=== PATIENT | female | born 2000 | race Caucasian/White ===

== ENCOUNTER 2024-07-02 03:11 | Outpatient (CLI) | payer OTHER, SELFPAY ==
[2024-07-02 12:32] LABS: Abs Immature Grans 0.04 10^3/uL (0.0-0.06); Absolute Basophil Count 0.02 10^3/uL (0.0-0.2); Absolute Eosinophil Count 0.28 10^3/uL (0.0-0.7); Absolute Lymphocyte Count 2.23 10^3/uL (1.2-3.4); Absolute Monocyte Count 0.59 10^3/uL (0.1-0.8); Absolute Neutrophil Count 6.83 10^3/uL (1.2-6.7); Basophils % 0.2 %; Eosinophils % 2.8 %; HCT 38.2 % (36.0-46.0); HGB 12.2 g/dL (11.2-15.7); Immature Grans % 0.4 %; Lymphocytes % 22.3 %; MCHC 31.9 % (32.0-36.0); MCV 88 fL (80-95); MPV 9.9 fL (8.0-11.0); Monocytes % 5.9 %; Neutrophils % 68.4 %; Platelet Count 281 10^3/uL (130-400); RBC 4.36 10^6/uL (3.93-5.22); RDW 11.7 % (11.7-14.6); RDW-SD 37.9 fL; WBC 9.99 10^3/uL (4.4-10.8)
[2024-07-02 13:23] LABS: ALT 23 U/L (14-59); AST 13 U/L (15-37); Alkaline Phosphatase 72 U/L (46-116); Anion Gap 8.7 mmol/L (3-11); BUN 7 mg/dL (7-18); Bilirubin, Total 0.2 mg/dL (0.2-1.0); CO2 25.3 mmol/L (21.0-32.0); CREATININE 0.6 mg/dL (0.55-1.02); Calcium 9.6 mg/dL (8.5-10.1); Chloride 102 mmol/L (98-107); Estimated GFR 129.27 (mL/min/1.73m2); Glucose 81 mg/dL (74-106); Potassium 3.9 mmol/L (3.5-5.1); Sodium 136 mmol/L (136-145); TSH (W/Ref FT4) 1.81 uIU/mL (0.36-3.74); Total Protein 7.9 g/dL (6.4-8.2)
[2024-07-03 09:14] LABS: Hepatitis B Surface Ag Negative (Negative)
[2024-07-03 09:37] LABS: Rubella IgG Ab (UVM) Positive (See Note); Varicella IgG Antibody Positive (See Note)
[2024-07-03 09:40] LABS: Hepatitis C Ab w Rflx HCV PCR Negative (Negative)
[2024-07-03 10:19] LABS: HIV-1/2 Ag & Ab Screen Negative (Negative)
[2024-07-03 12:32] LABS: ANA Interpretation Negative (Negative)
[2024-07-04 17:36] LABS: Syphilis IgG w/Reflex Nonreactive (Nonreactive)
== END 2024-07-02 03:12 | disposition home or self-care (01) ==
PROVIDERS: PCP Family Medicine; Visit Provider Advanced Practice Midwife
DX: Z34.91 Encounter for supervision of normal pregnancy, unspecified, first trimester (principal)
CPT/HCPCS: 36415; 80053; 86787; 86803; 86850; 86900; 86901; 87340; 87389; 83036; 84443; 85025; 86038; 86762; 86780

== ENCOUNTER 2024-07-02 11:39 | Outpatient (REF) | payer OTHER, SELFPAY ==
--- NOTE | 2024-07-02 11:00 | PAPFT_PTH ---
PATIENT: Kaitlin Marsh LOC: [facility] U#:[id number] AGE/SX: 24/F ROOM: RE07/02/[address]: Yasmin Stevens CNM : 2000 BED: DIS: 07/02/2024 SPEC #: [id number] RECD: 07/02/24 13:23 STATUS: VIKAS REQ #: [id number] ANGEL LUIS: 07/02/24 11:[address]: Yasmin Stevens DEPT: [facility] Cytology RECD BY: Karen Vera ENTERED: 07/02/24 13:23 SP TYPE: PAPFT OTHR DR: Bartolo Arnold Tissues: 1 - CX/ENDOCX FOR PAP SMEARS Procedures: PAP THIN PREP/UVM Screening Comments: [id number] (CHLAMYDIA/GC)
[2024-07-02 13:46] LABS: COMMENT (LAB VIEW ONLY) 236.97 mg/dL; Prot/Crea Ur Ratio 0.09
[2024-07-02 13:56] LABS: *AMPHETAMINES SCREEN URINE Negative (Negative); *BARBITURATES SCREEN URINE Negative (Negative); *BENZODIAZEPINES SCREEN URINE Negative (Negative); Cannabinoids THC Negative (Negative); Cocaine Screen,Urine Negative (Negative); METHADONE URINE SCREEN Negative (Negative); OPIATES URINE SCREEN Negative (Negative)
[2024-07-02 13:58] LABS: Tricyclic Antidepressants Negative (Negative)
[2024-07-03 11:51] LABS: Fentanyl Scr w/Rfx Confirm Negative ng/mL (<1)
[2024-07-03 12:35] LABS: Chlamydia Result Negative (Negative); GC Result Negative (Negative)
[2024-07-06 10:25] LABS: Buprenorphine Negative ng/mL (Cutoff: 5.0); Norbuprenorphine Negative ng/mL (Cutoff: 2.5)
== END 2024-07-02 11:40 | disposition home or self-care (01) ==
LOC: LBN 11:39
PROVIDERS: PCP Family Medicine; Visit Provider Advanced Practice Midwife
DX: Z12.4 Encounter for screening for malignant neoplasm of cervix
CPT/HCPCS: 80307; 80348; 87491; 87591; 88142; 82565; 84156; 87086

== ENCOUNTER 2024-07-11 21:36 | Emergency (ER) | payer OTHER, SELFPAY ==
[2024-07-11 21:38] VITALS: BP 140/87; PULSE 85; RESP 20; TEMP 36.8; O2SAT 100
--- NOTE | 2024-07-11 22:17 | ED.GENADUL_ITS ---
Discharge Plan Disposition Patient Disposition: Home Condition: Good Discharge Details Clinical Impression: Miscarriage, threatened, early , Abnormal vaginal bleeding Primary Care Provider: Bartolo Arnold ED Provider: Mary Grace Chávez Home Meds and New Rx's Prescriptions: Continued PNV #[id number] 30 mg iron-10 mg iron-1 mg capsule PO epinephrine [EpiPen 2-Candido] 0.3 mg/0.3 mL auto-injector 0.3 mg IM ONCE PRN Rx Instructions: as a single dose; may repeat once acetaminophen 500 mg tablet 500 mg PO Q6H PRN omeprazole 20 mg capsule,delayed release(DR/EC) 20 mg PO DAILY PRN aspirin 81 mg tablet,delayed release (DR/EC) 162 mg PO DAILY Qty: 90 3RF Discharge Instructions Instructions: Bleeding in Early ED Additional Instructions: Call your fire investigation lieutenant in the [facility] to schedule an appointment to followup on your visit today. Return to the emergency department if you develop new or worsening symptoms, including abdominal pain, fever, or if you soak through a pad in less than an hour. Discharge Data Discharge Date/Time-TO BE ENTERED AT DEPARTURE: 07/11/24 22:41 HPI General Mode of arrival: ambulatory . Date/Time Provider Initiated Documentation: 07/11/24 21:46 . Limitations to Documentation: no limitations . Information obtained by: patient and old records reviewed ( visit 07/02/24, US images may 2024) . HPI Narrative: 24yo 12w3d gestation by US with confirmed IUP, blood type A+, hx HTN, presenting for spotting. This evening about 1 hour ago after urinating noted a scant amount of blood on the toilet paper. Had to wipe 2-3 times before it resolved. No blood in the toilet. No further bleeding or spotting since then, not currently wearing a pad. Has not had bleeding otherwise this . No burning with urination or blood in her urine. No abdominal pain. No other vaginal discharge. Vaginal intercourse earlier today. Not yet feeling the baby move. Otherwise in her usual state of health. Related Data Home Medications ?Medication ?Instructions ?Recorded ?Confirmed epinephrine 0.3 mg/0.3 mL 0.3 mg IM ONCE PRN 07/22/23 07/11/24 injection, auto-injector (EpiPen 2-Candido) acetaminophen 500 mg tablet 500 mg PO Q6H PRN 08/30/23 07/11/24 vitamin#30 30 mg iron-10 cap PO 06/18/24 07/02/24 mg iron-folic acid 1 mg-omg3 capsule aspirin 81 mg tablet,delayed 162 mg (2 x 81 mg) PO DAILY #90 07/02/24 07/11/24 release tabs omeprazole 20 mg capsule,delayed 20 mg PO DAILY PRN 07/02/24 07/11/24 release Previous Rx's ?Medication ?Instructions ?Recorded aspirin 81 mg tablet,delayed 162 mg (2 x 81 mg) PO DAILY #90 07/02/24 release tabs Allergies Allergy/AdvReac Type Severity Reaction Status Date / Time marijuana (cannabis) Allergy Anaphylaxis Verified 07/11/24 21:40 General Stated 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 Head: Normocephalic, atraumatic Neck: Trachea midline, ?Neck supple. Cardiac: ?No cyanosis. Well perfused. Resp: No respiratory distress.Speaking in full sentences. Abd: ?Soft, non-distended, nontender : ?No suprapubic or adenxal tenderness. Normal external genitalia. No evident vaginal bleeding on external exam. Extremities: ?No deformities.? No peripheral edema. Neurologic: GCS 15. ? Moves all extremities freely against gravitic Course Vital Signs Vital signs: Vital Signs Temperature 36.8 C 07/11/24 21:38 Pulse 85 07/11/24 21:38 Respiratory Rate 07/11/24 21:38 Blood Pressure 140/87 07/11/24 21:38 Pulse Oximetry 100 07/11/24 21:38 Temperature 36.8 C 07/11/24 21:38 Pulse 85 07/11/24 21:38 Respiratory Rate 20 07/11/24 21:38 Blood Pressure 140/87 07/11/24 21:38 Blood Pressure Position Sitting 07/11/24 21:38 Pulse Oximetry 100 07/11/24 21:38 Oxygen Delivery Method Room Air 07/11/24 21:38 Oxygen Flow Rate 0 07/11/24 21:38 Medical Decision Making 24yo 12w3d gestation by US with confirmed IUP, blood type A+, hx HTN, presenting for spotting. Noted a scant amount of blood while wiping after urinating; no additional bleeding and is not wearing a pad. No abdominal pain. No dysuria. Elevated BP on arrival 140/87 (OB aware of and following her for her pregestational hypertension), vital signs otherwise reassuring. No abdominal tenderness no no active bleeding on external genital exam. FHT 170's. With confirmed IUP and not on fertility treatment and no pain, unlikely ectopic; would not transfer emergent for ultrasound. Not suggestive of UTI. No indication for rhogam. Likely threatened miscarriage; considered speculum exam to assess cervcial os however would not warp changer at this time, regardless would discharge home to followup closely with fire investigation lieutenant. Patient would like to go home and followup wtih OB. Advised to call in the morning to schedule a followup appointment for her bleeding and BP. Discharged home; discharged instructions and return precautions were reviewed with patient who verbalized understanding. All questions were answered and she is in full agreement with the plan. Quality:SDOH Health Related Social Needs: No Data to Display PFSH All Active Problems (Updated 07/11/24 @ 22:31 by Mary Grace Chávez MD) Abnormal vaginal bleeding (Acute) Miscarriage, threatened, early (Acute) Family history of cardiac arrhythmia (Acute) pt's mother had an [place], implanted defibrillator in her 40's Family history of aortic valve disorder (Acute) pt's mother had valve replacement in her 40's Chronic eczema (Acute) Family history of Zizc-Pbaol-Kzwqqfe disease (Acute) Baby's father (pt's fiance) Body mass index (BMI) of 40.1 to 44.9 in adult (Acute) Chronic constipation (Acute) (Acute) Stage 1 hypertension (Acute) Medical History (Updated 07/11/24 @ 22:31 by Mary Grace Chávez MD) Family history of diabetes mellitus in grandmother Family history of diabetes mellitus in grandfather Foreign body in right ear Removed ENT, 08/30/23 Tobacco user Obesity Menorrhagia Generalized anxiety disorder Disorder of speech or language development Allergic rhinitis due to tree pollen Ganglion, unspecified site right wrist Decreased hearing Social History (Updated 07/22/23 @ 15:15 by Marie Aly RN) Smoking/Tobacco Use Status: Former Tobacco Use tobacco type: e-cigarettes Smoking risk assessment performed?: Yes History History 1 Para 0 Hx # Term Pregnancies 0 Multiple births 0 Hx # Pregnancies 0 Ectopic pregnancies 0 AB induced 0 Hx Number of Living Children 0 AB spontaneous 0
== END 2024-07-11 22:41 | disposition home or self-care (01) ==
LOC: ER 23:02
PROVIDERS: Emergency Provider Student in an Organized Health Care Education/Training Program; PCP Family Medicine
DX: O20.0 Threatened abortion (principal); N93.9 Abnormal uterine and vaginal bleeding, unspecified
CPT/HCPCS: 99283; 99282

== ENCOUNTER 2024-08-23 03:35 | Outpatient (CLI) | payer OTHER, MEDICAID, SELFPAY ==
[2024-08-28 15:28] LABS: AFP 36.1 ng/mL; Calculated age at EDD 24 years; Cigarette smoking status non-Smoker; GA used in risk estimate Scan estimate; IVF Pregnancy No; Initial or repeat testing Initial testing; Insulin dependent diabetes No; Maternal Weight 235 lbs; Number of Fetuses 1; Physician Phone Number 802-748-7300; Prev Pregnancy w/NTD No; RECOMMENDED FOLLOW UP None.; Results Summary Normal risk
== END 2024-08-23 03:36 | disposition home or self-care (01) ==
LOC: LBO 03:36
PROVIDERS: Advanced Practice Midwife; PCP Family Medicine; Visit Provider Advanced Practice Midwife
DX: Z34.91 Encounter for supervision of normal pregnancy, unspecified, first trimester (principal)
CPT/HCPCS: 36415; 82105

== ENCOUNTER 2024-09-11 13:21 | Outpatient (CLI) | payer OTHER, MEDICAID, SELFPAY ==
--- NOTE | 2024-09-11 13:15 | RT.EKG_ITS ---
APPROVED REPORT Exam: Resting ECG Reason for Exam: and family historuy of arrhythmia Patient Location: O HR:85 bpm ECG Measurements Heart Rate 85 AXIS NC 131 P 46 QRSd 77 QRS 12 QT 351 T 2 QTc 418 Conclusion Sinus rhythm...normal P axis, V-rate 50- 99 Normal Electrocardiogram
== END 2024-09-11 13:22 | disposition home or self-care (01) ==
PROVIDERS: PCP Family Medicine; Visit Provider Advanced Practice Midwife
DX: Z82.49 Family history of ischemic heart disease and other diseases of the circulatory system (principal)
CPT/HCPCS: 93005; 93010

== ENCOUNTER 2024-09-19 11:05 | Outpatient (CLI) | payer OTHER, MEDICAID, SELFPAY ==
[2024-09-19 13:59] VITALS: BP 110/77; PULSE 71
[2024-09-19 14:02] VITALS: BP 110/77; PULSE 71
--- NOTE | 2024-09-19 17:56 | W.OBNST ---
Date of service: 09/19/24 Time of Service: 15:00 NST Evaluation Reason for NST Reasons for Nonstress Test: DECREASED MOVEMENT Gestational Age Gestational Age in Weeks and Days: 22 Weeks and 3Days Test and Monitor Explained Test/Monitor Explained: Test Explained, Monitor Explained and Patient Verbalized Understanding Vital Signs Blood Pressure: 110/77 Pulse: 71 NST Information Date on Monitor: 09/19/24 Time on Monitor: 13:45 Date off Monitor: 09/19/24 Time off Monitor: 14:35 Total Time on Monitor: 50 NST Interventions: None Contraction Frequency: none NST Evaluation Patient States Movement: Present FHR Baseline: 140 Variability: Moderate 6-25 bpm Note Ultrasound Done: N/A. NST Note Note: Pt's urine negative except for sp. gr >1.030, trace ketones. Pt encouraged to hydrate more, no vomiitng since yesterday. NST Reviewed and Verified by: Yasmin Stevens
[2024-09-19 17:57] VITALS: BP 110/77; PULSE 71
[2024-09-20 15:58] VITALS: BP 128/70; PULSE 71
== END 2024-09-19 14:40 | disposition home health service (06) ==
LOC: BCD 11:22 → OBS 13:51
PROVIDERS: PCP Family Medicine; Visit Provider Advanced Practice Midwife
DX: O36.8121 Decreased fetal movements, second trimester, fetus 1 (principal); Z3A.22 22 weeks gestation of pregnancy
CPT/HCPCS: 59025

== ENCOUNTER 2024-10-19 02:20 | Outpatient (CLI) | payer OTHER, MEDICAID, SELFPAY ==
[2024-10-19 13:04] LABS: HCT 34.9 % (36.0-46.0); HGB 11.7 g/dL (11.2-15.7); MCH 29.1 pg (27.0-33.0); MCHC 33.5 % (32.0-36.0); MCV 87 fL (80-95); MPV 10.7 fL (8.0-11.0); Platelet Count 242 10^3/uL (130-400); RBC 4.02 10^6/uL (3.93-5.22); RDW 13.5 % (11.7-14.6); RDW-SD 42.5 fL; WBC 13.21 10^3/uL (4.4-10.8)
[2024-10-19 13:09] LABS: Glucose,1 Hr (Glucola) 127 mg/dL (80-140)
[2024-10-19 13:53] LABS: Cannabinoids THC Negative (Negative); METHADONE URINE SCREEN Negative (Negative)
[2024-10-21 10:47] LABS: Fentanyl Scr w/Rfx Confirm Negative ng/mL (<1)
== END 2024-10-19 02:21 | disposition home or self-care (01) ==
PROVIDERS: PCP Family Medicine; Visit Provider Advanced Practice Midwife
DX: Z34.92 Encounter for supervision of normal pregnancy, unspecified, second trimester (principal); F12.90 Cannabis use, unspecified, uncomplicated
CPT/HCPCS: 36415; 80307; 80348; 82950; 85027

== ENCOUNTER 2024-10-30 09:41 | Outpatient (CLI) | payer OTHER, MEDICAID, SELFPAY ==
[2024-10-30 11:51] VITALS: BP 125/81; PULSE 81
[2024-10-30 12:01] VITALS: BP 128/87; PULSE 80
[2024-10-30 12:11] VITALS: BP 124/86; PULSE 75
[2024-10-30 12:21] VITALS: BP 133/93; PULSE 85
[2024-10-30 12:48] VITALS: BP 124/86; PULSE 75
--- NOTE | 2024-10-31 08:16 | W.OBNST ---
Date of service: 10/30/24 Time of Service: 13:00 NST Evaluation Reason for NST Reasons for Nonstress Test: OTHER, SEE COMMENT Reason for NST Other: general pain, suprapubic pain, left lateral pain Gestational Age Gestational Age in Weeks and Days: 30 Weeks and 0Days Test and Monitor Explained Test/Monitor Explained: Test Explained, Monitor Explained and Patient Verbalized Understanding Vital Signs Blood Pressure: 124/86 Pulse: 75 Urine Results Urine Protein: Negative Urine Ketones: Negative Urine Glucose: Negative Urine Blood: Negative NST Information Date on Monitor: 10/30/24 Time on Monitor: 11:15 Date off Monitor: 10/30/24 Time off Monitor: 12:25 Total Time on Monitor: 70 NST Interventions: PO Hydration Contraction Frequency: no UCs, occasional irritabilty, urine dark with SG 1.015 NST Evaluation Patient States Movement: Present FHR Baseline: 140 Variability: Moderate 6-25 bpm Accelerations: 10x10 Decelerations: None NST Results: Reactive Note Ultrasound Done: N/A. NST Note Note: Cvx is closed, given abdominal binder with instructions NST Reviewed and Verified by: Yasmin Stevens
[2024-10-31 08:17] VITALS: BP 124/86; PULSE 75
== END 2024-10-30 12:40 ==
LOC: BCD 09:41 → OBS 11:13
PROVIDERS: PCP Family Medicine; Visit Provider Advanced Practice Midwife
DX: Z3A.30 30 weeks gestation of pregnancy (principal); O99.891 Other specified diseases and conditions complicating pregnancy; R10.32 Left lower quadrant pain; R10.31 Right lower quadrant pain
CPT/HCPCS: 59025

== ENCOUNTER 2024-11-13 02:12 | Outpatient (CLI) | payer OTHER, MEDICAID, SELFPAY ==
--- NOTE | 2024-11-13 07:00 | DI.US_ITS ---
Exam(s) US OB RODRIGO WEIGHT EXAM: US OB RODRIGO WEIGHT CLINICAL HISTORY: interval growth,z34.90. TECHNIQUE: Transabdominal obstetrical ultrasound performed. COMPARISON: No exams were available for comparison FINDINGS: Number of fetuses: 1 position: BREECH Placental location: There is a grade 1 posterior placenta. No evidence of previa. BIOMETRIC DATA: BPD: 8.09cm, 32weeks 3days HC: 29.5cm, 32weeks 4days AC: 27.56cm, 31weeks 4days FL: 5.8cm, 30weeks 2days EFW: 1,758.48g, 4lb, 21.7% Composite Age: 31weeks 5days ASCENCION: 01/10/2025 Heart Rate: 133bpm Amniotic fluid index: 16.87cm. The largest pocket measures 4.7 cm. IMPRESSION: 1. Single live intrauterine gestation as above. 2. Estimated weight is 1758gms. This is the 22nd percentile. 3. Amniotic fluid index is 16.9 cm. The largest pocket is 4.7 cm. DATA REPOSITORY:
== END 2024-11-13 02:32 ==
LOC: DI 02:12
PROVIDERS: PCP Family Medicine; Visit Provider Advanced Practice Midwife
DX: Z68.41 Body mass index [BMI] 40.0-44.9, adult (principal); Z34.93 Encounter for supervision of normal pregnancy, unspecified, third trimester; Z3A.32 32 weeks gestation of pregnancy
CPT/HCPCS: 76816

== ENCOUNTER 2024-11-22 07:28 | Outpatient (CLI) | payer OTHER, MEDICAID, SELFPAY ==
[2024-11-22 08:13] VITALS: BP 108/70; PULSE 92; TEMP 36.5
[2024-11-22 08:34] VITALS: BP 108/70; PULSE 92
--- NOTE | 2024-11-22 09:30 | DI.US_ITS ---
Exam(s) US OB RODRIGO, WEIGHT BIO PROF. EXAM: US OB RODRIGO, WEIGHT BIO PROF. CLINICAL HISTORY: variables. TECHNIQUE: Transabdominal obstetrical ultrasound performed. COMPARISON: US US OB RODRIGO WEIGHT from 11/13/2024 FINDINGS:: Number of fetuses: 1 position: CEPHALIC Placental location: POSTERIOR No evidence of previa. BIOMETRIC DATA: BPD: 8.21 cm, 33+ 0 weeks HC: 30.34 cm, 33+5 weeks AC: 28.47 cm, 32+3 weeks FL: 6.39 cm, 33+ 0 weeks EFW: 2056.46 g, 27.7 %, appropriate interval growth from the previous exam Composite Age: 33+ 0 weeks ASCENCION: 10 January 2025 Heart Rate: 134 bpm Amniotic fluid index: 15.88 cm. Visually, amount of fluid is within normal limits. Biophysical profile: RODRIGO: 2/2 Respiration: 2/2 Body flexion/extension: 2/2 Extremities flexion/extension: 2/2 Total score: 8/8 IMPRESSION: size and weight are within the expected range. Normal biophysical profile. DATA REPOSITORY:
--- NOTE | 2024-11-22 10:16 | W.OBNST ---
Date of service: 11/22/24 Time of Service: 10:16 NST Evaluation Reason for NST Reasons for Nonstress Test: OTHER, SEE COMMENT Reason for NST Other: abdominal pain Gestational Age Gestational Age in Weeks and Days: 33 Weeks and 2Days Test and Monitor Explained Test/Monitor Explained: Test Explained, Monitor Explained and Patient Verbalized Understanding Vital Signs Blood Pressure: 108/70 Pulse: 92 Temperature: 97.7 F NST Information Date on Monitor: 11/22/24 Time on Monitor: 08:18 Date off Monitor: 11/22/24 Time off Monitor: Total Time on Monitor: 67 NST Interventions: PO Hydration NST Evaluation Patient States Movement: Present FHR Baseline: 135 Variability: Moderate 6-25 bpm Accelerations: 15x15 and 10x10 Decelerations: Variable NST Results: Reactive Note Ultrasound Done: N/A. NST Note Note: Patient seen for right lower quadrant discomfort. Her cervix is closed thick and long. She had a category 1 strip with an occasional variable. Biophysical profile was 8 out of 8 per diagnostic imaging. Ultrasound for growth, RODRIGO, and position were all performed. She will follow-up as scheduled. NST Reviewed and Verified by: Jody Dickerson
[2024-11-22 10:17] VITALS: BP 108/70; PULSE 92; TEMP 36.5
[2024-11-22 12:13] VITALS: BP 108/70; PULSE 92; TEMP 36.5
--- NOTE | 2024-11-22 12:13 | W.OBNST ---
Date of service: 11/22/24 Time of Service: 12:13 NST Evaluation Reason for NST Reasons for Nonstress Test: OTHER, SEE COMMENT Reason for NST Other: abdominal pain Gestational Age Gestational Age in Weeks and Days: 33 Weeks and 2Days Test and Monitor Explained Test/Monitor Explained: Test Explained, Monitor Explained and Patient Verbalized Understanding Vital Signs Blood Pressure: 108/70 Pulse: 92 Temperature: 97.7 F NST Information Date on Monitor: 11/22/24 Time on Monitor: 08:18 Date off Monitor: 11/22/24 Time off Monitor: Total Time on Monitor: 67 NST Interventions: PO Hydration NST Evaluation Patient States Movement: Present FHR Baseline: 135 Variability: Moderate 6-25 bpm Accelerations: 15x15 and 10x10 Decelerations: Variable NST Results: Reactive Note Ultrasound Done: N/A. NST Note Note: Category 1, reactive NST. NST Reviewed and Verified by: Jody Dickerson
== END 2024-11-22 10:08 ==
LOC: BCD 07:28 → OBS 08:10
PROVIDERS: PCP Family Medicine; Visit Provider Advanced Practice Midwife
DX: R10.30 Lower abdominal pain, unspecified (principal); Z3A.33 33 weeks gestation of pregnancy; O99.891 Other specified diseases and conditions complicating pregnancy
CPT/HCPCS: 76816; 59025; 76819

== ENCOUNTER 2024-12-05 07:31 | Outpatient (CLI) | payer OTHER, MEDICAID, SELFPAY ==
[2024-12-05 09:04] VITALS: BP 121/67; PULSE 83
[2024-12-05 09:08] VITALS: BP 121/67; PULSE 83
[2024-12-05 10:55] VITALS: BP 121/67; PULSE 83
--- NOTE | 2024-12-05 10:55 | W.OBNST ---
Date of service: 12/05/24 Time of Service: 10:55 NST Evaluation Reason for NST Reasons for Nonstress Test: OTHER, SEE COMMENT Reason for NST Other: High BMI Gestational Age Gestational Age in Weeks and Days: 35 Weeks and 1Days Test and Monitor Explained Test/Monitor Explained: Test Explained, Monitor Explained and Patient Verbalized Understanding Vital Signs Blood Pressure: 121/67 Pulse: 83 NST Information Date on Monitor: 12/05/24 Time on Monitor: 08:52 Date off Monitor: 12/05/24 Time off Monitor: 10:00 Total Time on Monitor: 68 NST Interventions: PO Hydration and Other NST Evaluation Patient States Movement: Present FHR Baseline: 135 Variability: Moderate 6-25 bpm Accelerations: 15x15 Decelerations: None NST Results: Reactive Note Ultrasound Done: N/A. NST Note Note: return next week for weekly NST d/t BMI NST Reviewed and Verified by: Yasmin Stevens
== END 2024-12-05 10:26 | disposition other institution (70) ==
LOC: BCD 07:32 → OBS 08:50
PROVIDERS: PCP Family Medicine; Visit Provider Advanced Practice Midwife
DX: Z3A.35 35 weeks gestation of pregnancy (principal); O13.3 Gestational [pregnancy-induced] hypertension without significant proteinuria, third trimester
CPT/HCPCS: 59025

== ENCOUNTER 2024-12-11 00:51 | Outpatient (CLI) | payer OTHER, MEDICAID, SELFPAY ==
--- NOTE | 2024-12-11 05:30 | DI.US_ITS ---
Exam(s) US OB RODRIGO WEIGHT EXAM: US OB RODRIGO WEIGHT CLINICAL HISTORY: RODRIGO and growth for HTN during ,i10,z34.90. TECHNIQUE: Transabdominal obstetrical ultrasound performed. COMPARISON: US POCUS EXAM from 06/04/2024 US US OB RODRIGO WEIGHT from 11/13/2024 US US OB RODRIGO, WEIGHT BIO PROF. from 11/22/2024 FINDINGS:: Number of fetuses: 1 position: CEPHALIC Placental location: FUNDAL No evidence of previa. BIOMETRIC DATA: BPD: 8.91cm, 36weeks HC: 32.59cm, 37weeks AC: 31.97cm, 35weeks 6days FL: 6.73cm, 34weeks 4days EFW: 2,741.41g, 6lb 1.6oz, 42% Composite Age: 35weeks 6days ASCENCION: 01/09/2025 Heart Rate: 138bpm Amniotic fluid index: 11.87cm. Visually, amount of fluid is within normal limits. IMPRESSION: size and weight are within the expected range. DATA REPOSITORY:
== END 2024-12-11 01:11 ==
LOC: DI 00:51
PROVIDERS: PCP Family Medicine; Visit Provider Advanced Practice Midwife
DX: Z34.93 Encounter for supervision of normal pregnancy, unspecified, third trimester (principal); Z68.41 Body mass index [BMI] 40.0-44.9, adult; I10 Essential (primary) hypertension; Z3A.36 36 weeks gestation of pregnancy
CPT/HCPCS: 76816

== ENCOUNTER 2024-12-11 07:25 | Outpatient (CLI) | payer OTHER, MEDICAID, SELFPAY ==
[2024-12-11 10:10] VITALS: BP 126/86; PULSE 87; TEMP 36.6
[2024-12-11 11:01] VITALS: BP 114/69; PULSE 85
--- NOTE | 2024-12-11 15:49 | W.OBNST ---
Date of service: 12/11/24 Time of Service: 15:49 NST Evaluation Reason for NST Reasons for Nonstress Test: OTHER, SEE COMMENT Reason for NST Other: Elevated BMI Gestational Age Gestational Age in Weeks and Days: 36 Weeks and 0Days Test and Monitor Explained Test/Monitor Explained: Test Explained, Monitor Explained and Patient Verbalized Understanding Vital Signs Blood Pressure: 126/86 Pulse: 87 Temperature: 97.9 F Urine Results Urine Protein: Negative Urine Ketones: Negative Urine Glucose: Negative Urine Blood: Negative NST Information Date on Monitor: 12/11/24 Time on Monitor: 10:00 Date off Monitor: 12/11/24 Time off Monitor: 11:10 Total Time on Monitor: 70 NST Interventions: None Contraction Frequency: None NST Evaluation Patient States Movement: Present FHR Baseline: 135 Variability: Moderate 6-25 bpm Accelerations: 15x15 Decelerations: None NST Results: Reactive Note Ultrasound Done: N/A. NST Note Note: Kaitlin is here for weekly NST. Wishes discussed and Kaitlin is considering writing a plan. BP rechecked and 114/69. RTO 1 week. BS collected. NST Reviewed and Verified by: Autumn Segura
[2024-12-11 15:50] VITALS: BP 126/86; PULSE 87; TEMP 36.6
== END 2024-12-11 11:22 ==
LOC: BCD 07:31 → OBS 10:03
PROVIDERS: PCP Family Medicine; Visit Provider Advanced Practice Midwife
DX: O99.891 Other specified diseases and conditions complicating pregnancy (principal); R03.0 Elevated blood-pressure reading, without diagnosis of hypertension; Z3A.36 36 weeks gestation of pregnancy
CPT/HCPCS: 59025; 87081

== ENCOUNTER 2024-12-18 08:06 | Outpatient (CLI) | payer OTHER, MEDICAID, SELFPAY ==
[2024-12-18 09:07] VITALS: BP 132/75; PULSE 95; TEMP 36.7
[2024-12-18 09:26] LABS: HCT 34.3 % (36.0-46.0); HGB 11.4 g/dL (11.2-15.7); MCH 28.8 pg (27.0-33.0); MCHC 33.2 % (32.0-36.0); MCV 87 fL (80-95); MPV 10.7 fL (8.0-11.0); Platelet Count 235 10^3/uL (130-400); RBC 3.96 10^6/uL (3.93-5.22); RDW 13.2 % (11.7-14.6); RDW-SD 41.7 fL; WBC 12.12 10^3/uL (4.4-10.8)
[2024-12-18 16:52] VITALS: BP 132/75; PULSE 95; TEMP 36.7
--- NOTE | 2024-12-18 16:52 | W.OBNST ---
Date of service: 12/18/24 Time of Service: 16:52 NST Evaluation Reason for NST Reasons for Nonstress Test: OTHER, SEE COMMENT Reason for NST Other: Elevated BMI Gestational Age Gestational Age in Weeks and Days: 37 Weeks and 0Days Test and Monitor Explained Test/Monitor Explained: Test Explained, Monitor Explained and Patient Verbalized Understanding Vital Signs Blood Pressure: 132/75 Pulse: 95 Temperature: 98.1 F Weight: 158 lb Urine Results Urine Protein: Negative Urine Ketones: Negative Urine Glucose: Negative Urine Blood: Negative NST Information Date on Monitor: 12/18/24 Time on Monitor: 08:34 Date off Monitor: 12/18/24 Time off Monitor: 09:05 Total Time on Monitor: 31 NST Interventions: Notify Provider Contraction Frequency: 0 NST Evaluation Patient States Movement: Present FHR Baseline: 140 Variability: Moderate 6-25 bpm Accelerations: 15x15 Decelerations: None NST Results: Reactive Note Ultrasound Done: N/A. NST Note Note: NST next week NST Reviewed and Verified by: Yasmin Stevens
== END 2024-12-18 09:17 ==
LOC: BCD 08:08 → OBS 08:43
PROVIDERS: PCP Family Medicine; Visit Provider Advanced Practice Midwife
DX: Z3A.37 37 weeks gestation of pregnancy (principal); O99.213 Obesity complicating pregnancy, third trimester
CPT/HCPCS: 36415; 85027; 59025

== ENCOUNTER 2024-12-25 07:13 | Outpatient (CLI) | payer OTHER, MEDICAID, SELFPAY ==
[2024-12-25 08:44] VITALS: BP 122/77; PULSE 0
[2024-12-25 08:45] VITALS: PULSE 80; O2SAT 97
[2024-12-25 08:53] VITALS: BP 122/77; PULSE 80; RESP 16; TEMP 36.6; O2SAT 97
[2024-12-25 12:16] VITALS: BP 122/77; PULSE 80; TEMP 36.6
--- NOTE | 2024-12-25 12:16 | W.OBNST ---
Date of service: 12/25/24 Time of Service: 10:00 NST Evaluation Reason for NST Reasons for Nonstress Test: CHRONIC HYPERTENSION and OTHER, SEE COMMENT Reason for NST Other: high BMI Gestational Age Gestational Age in Weeks and Days: 38 Weeks and 0Days Test and Monitor Explained Test/Monitor Explained: Test Explained, Monitor Explained and Patient Verbalized Understanding Vital Signs Blood Pressure: 122/77 Pulse: 80 Temperature: 97.9 F Weight: 250 lb Urine Results Urine Protein: Positive Urine Ketones: Negative Urine Glucose: Negative Urine Blood: Negative NST Information Date on Monitor: 12/25/24 Time on Monitor: 08:50 Date off Monitor: 12/25/24 Time off Monitor: 09:54 Total Time on Monitor: 64 NST Interventions: PO Hydration Contraction Frequency: 0 NST Evaluation Patient States Movement: Decreased FHR Baseline: 125 Variability: Moderate 6-25 bpm Accelerations: 15x15 Decelerations: None NST Results: Reactive Note Ultrasound Done: N/A. NST Note Note: Weekly NST Booked for IOL 01/04 NST Reviewed and Verified by: Yasmin Stevens
== END 2024-12-25 10:10 ==
LOC: BCD 07:13 → OBS 08:28
PROVIDERS: PCP Family Medicine; Visit Provider Advanced Practice Midwife
DX: Z3A.38 38 weeks gestation of pregnancy (principal); O13.3 Gestational [pregnancy-induced] hypertension without significant proteinuria, third trimester; O99.213 Obesity complicating pregnancy, third trimester
CPT/HCPCS: 59025

== ENCOUNTER 2024-12-29 22:00 | Inpatient (IN) | payer OTHER, MEDICAID, SELFPAY ==
[2024-12-29 21:29] VITALS: BP 139/93; PULSE 85; TEMP 36.7
--- NOTE | 2024-12-29 22:03 | HPE_ITS ---
Date of service: 12/29/24 Time of Service: 22:04 Assessment and Plan Assessment and plan (1) Premature rupture of membranes: Status: Acute (2) 38 weeks gestation of : Status: Acute Assessment and plan: The natural history of PROM was discussed, noting that it occurs in about 8-10% of term pregnancies. Labor beings in 24 hours in 70% of parturients with PROM, and in 90+% in 96 hours. We discussed active versus expectant management, particularly noting that active management decreases risk for chorioamnionitis by about half, decreased NICU admissions and reduces the time from ROM to delivery by about 10 hours, while not increasing risk for delivery. We also discussed that expectant management is not associated with increased mona sepsis, may improve maternal / child bonding, and is associated with fewer interventions in labor, though the risk for choriomnionitis increases significantly after 24 hours. We reviewed that antibiotic prophylaxis is generally not indicated and that 's may need to be observed for 48 hours after delivery when ROM has been >24 hours. She voiced understanding of her options and would like to proceed with active management. She has not recently had a cervical exam, and given that she is not feeling contractions (and those that are present are mild), it is reasonable to assume cervical ripening is needed, will initiate PO misoprostol and transition to Pitocin as indicated. A: IUP at 38w4d PROM Category I surveillance Newly elevated diastolic blood pressure in the setting of stage 1 HTN not currently requiring antihypertensives P: - Admit for labor and delivery - PO misoprostol - CBC, CMP, ABO/Rh with antibody screen. Not able to obtain a clean catch urine for PC ratio given the amount of amniotic fluid that is expelling, though if there is an indication for bladder catheterization in the future, will plan a PC ratio. - Will watch maternal blood pressures closely given risk factors for pre- eclampsia. Clinical exam at this time not suggestion of PEC. - prefences discussed - monitoring: continuous per IOL protocols - Will reassess in 4 hours or sooner PRN. - Plan to limit SVEs so as to reduce risk for infection OB-HPI Labor/Delivery History of Present Illness Reason for Visit: water broke Chief Complaint: Suspected Rupture of Membranes , Associated Signs and Symptoms of Suspected ROM: LOF. ASCENCION Calculator Estimated Delivery Date Method Current WG Current Estimate 01/08/25 LMP (Certain) 38w 4d Other Estimates 01/20/25 Ultrasound #1 36w 6d 01/11/25 Ultrasound #2 38w 1d Comments: Kaitlin is a 24 year old at 38w4d gestation by LMP who presents to L&D with complaints of copious watery discharge expelling from the vagina since ~ 2029. She describes the fluid as clear and pink-tinged. It has continued to leak since the initial gush. She is joined by her partner Matt, mother, father, aunt, sister and other extended family members. course as described below. Gestational weight gain has been 13 lbs. Recent growth sonogram on 12/11/24 showed a fetus in the 42% growth percentile. GBS status is negative plan: - Partner Matt and her mother will stay with her - Expecting a baby boy, who will be breastfed - Hoping to use hydrotherapy, and is also consider IV pain medications History of Present Expected Delivery Route/Plan - CNKalyn (likely MD matthews) FOB/fiance - Matt Gopi (first child) Will find out gender at level 2 scan: BB, plans to circ GBS negative IOL booked for 01/04 (d/t BMI) Specific Issues/Plan 1. Stage 1 HTN/family hx heart disease: Pt reports BPs were 130s/80s but d/t strong fam hx heart disease PCP put her on Amlodipine. She took for 6mo then stopped 5mo before . PCP had her restart, BP's have been nml and pt stopped again @ 5-6 wks. 1a. Tried labetalol but felt dizzy even on 50mg, discontinued Rx 2. Low dose ASA at 12 wks d/t fam hx, BMI, nulliparity, stage 1 HTN 3. BMI 42, hgbA1c 5.0. M recommends weekly NST starting @ 34-35 wks 4. Declines all genetic screening due to no insurance coverage for it. 5. [facility] [place] level 2 scan and M consult for fam hx and stage 1 HTN. See consult noted for recommendations: 5a. EKG=nml. Home BP monitoring, growth scan @ 32 wks: 22nd percentile, RODRIGO 17, breech 5b. US at 36- RODRIGO 11.87 cms. EFW 42%ile wks, IOL at 40-41 wks w/shared decision-making 6. Visible gum inflammation; saw dentist, treatment planned PP 7. 5P screen+, initial UDS negative, 28 wk UDS - neg 8. Anxiety and depression- no meds currently. 9. Low back pain and chronic arthritis - declines PT. Has not found supplements or tylenol to be effective. 10. costochondritis starting at 21 weeks -chronic rib pain after being dragged by a cow. Flexeril 5 mg at HS PRN. Declines PT, doesn't work for her. Not using Flexeril. 11. Hx chronic digestive issues, diarrhea & constipation, tried fiber and stool softener in past & has found ineffective. Review of Systems Narrative: Constitutional: no fever, no aches no chills OB: less FM this evening than usual, no CTXs, see above regarding LOF, no jm vaginal bleeding Neuro: no headache, no scotoma GI: no upper abominal pain PFSH All Active Problems (Updated 12/29/24 @ 22:18 by Dodie Ferris CNM) 38 weeks gestation of (Acute) Premature rupture of membranes (Acute) Marijuana use (Acute) Costochondritis (Acute) Family history of cardiac arrhythmia (Acute) pt's mother had an [place], implanted defibrillator in her 40's Family history of aortic valve disorder (Acute) pt's mother had valve replacement in her 40's Chronic eczema (Acute) Family history of Cfii-Nmecw-Nvaavmw disease (Acute) Baby's father (pt's fiance) Body mass index (BMI) of 40.1 to 44.9 in adult (Acute) Chronic constipation (Acute) (Acute) Stage 1 hypertension (Acute) Medical History Eczema Arthritis Rib injury Dragged by a cow. Pain x 1 year. Family history of diabetes mellitus in grandmother Family history of diabetes mellitus in grandfather Foreign body in right ear Removed ENT, 08/30/23 Tobacco user Obesity Menorrhagia Generalized anxiety disorder Disorder of speech or language development Allergic rhinitis due to tree pollen Ganglion, unspecified site right wrist surgery 2023 Decreased hearing Surgical History History of hand surgery Family History Mother Heart disease [place]. Chronic cardiac arrhythmia Depression Anxiety Asthma Maternal Grandfather Heart disease [place] age 47 Chronic cardiac arrhythmia Cancer lung cancer Arthritis Father Depression Anxiety Maternal Grandmother Diabetes Arthritis Paternal Grandfather Arthritis Diabetes Brother Asthma Hypertension Social History Smoking/Tobacco Use Status: Former Tobacco Use tobacco type: e-cigarettes Smoking risk assessment performed?: Yes History History 1 Para 0 Hx # Term Pregnancies 0 Multiple births 0 Hx # Pregnancies 0 Ectopic pregnancies 0 AB induced 0 Hx Number of Living Children 0 AB spontaneous 0 Meds Allergies and Home Medications Allergies Allergy/AdvReac Type Severity Reaction Status Date / Time marijuana (cannabis) Allergy Anaphylaxis Verified 11/28/24 14:54 Home Medications ?Medication ?Instructions ?Recorded ?Confirmed ?Type epinephrine 0.3 mg/0.3 mL 0.3 mg IM ONCE PRN 07/22/23 12/25/24 History injection, auto-injector (EpiPen 2-Candido) acetaminophen 500 mg tablet 500 mg PO Q6H PRN 08/30/23 12/25/24 History vitamins 30 30 mg iron-10 1 cap PO DAILY 05/2112/25/24 History mg iron-folic acid 1 mg-om3 capsule aspirin 81 mg tablet,delayed 162 mg (2 x 81 mg) PO NATALI LY #90 07/02/24 12/25/24 Rx release tabs pantoprazole 20 mg tablet,delayed 40 mg (2 x 20 mg) PO DAILY #60 tabs 11/09/24 12/25/24 Rx release (Protonix) Exam Physical Exam Vital signs: Pulse BP 85 139/93 H 12/29/24 21:29 12/29/24 21:29 Narrative: Constitutional: well-nourished, well-developed, alert Respiratory: effort is unlabored, normal breath sounds bilaterally Cardiovascular: regular rate, normal rhythm, no murmurs, 1+ edema bilateral LEXT Gastrointestinal: non-tender to palpation, tone normal without rigidity or guarding, no masses Genitourinary: - external: no inflammation, no lesions - vagina: SSE --> copious clear fluid that is pooling, pH 7, +ferning - cervix:SVE: deferred - uterus: gravid, normal shape, contractions q 4minutes, mild to palpation (Kaitlin is not aware of these contractions) - perineum: within normal limits Neurologic: DTRs +1 left patella / +1 right patella, clonus absent right and left sides Skin and Subcutaneous Tissue: no rashes, no lesions, no areas of discoloration Fetus: - EFW: 3.1 kg - Presentation: cephalic, confirmed by POCUS - 130s baseline, moderate variability, + accels, intermittent early decels Detailed Labor and Delivery Exam Hagan Score: Cervical Points Exam 0 1 2 3 Dilation Closed 1-2cm 3-4 cm 5-6cm Effacement 0-30% 40-50% 60-70% 80% Consistency Firm Medium Soft Station -3 -2 -1,0 +1,+2 Position Posterior Mid Anterior Risk Assessment Risk for Shoulder Dystocia Historical/Initial OB: POSITIVE FOR: Pre- BMI>30; NEGATIVE FOR: Pelvic Abnormality, Previous Shoulder Dystocia or Previous Macrosomia Risk for Pre-Eclampsia Date Initiated/Initials: to start @ 12 wks, JK Yes, if one or more: POSTIVE FOR: Chronic HTN; NEGATIVE FOR: Hx Pre-E/Gest HTN, Multiple Gestation, Pre-gestational DM, Renal Disease, Systemic Lupus or APA Syndrome Yes, if 2 or more: POSITIVE FOR: Nulliparity and BMI>30; NEGATIVE FOR: Age>= 35 yrs, >10yr btwn pregnancies, ethinicty, Mother/Sister w/ Pre-E or Previous IUGR Risk for Post- Hemorrhage Initial: NEGATIVE FOR: Multiple Gestation, Previous PPH, Known Clotting Deficiency, Grand Multiparity or Anticoagulation Risks Reviewed Risks Reviewed Upon Admission: Yes
[2024-12-29 22:24] VITALS: BP 139/93; PULSE 85; RESP 16; TEMP 36.7
[2024-12-29] MEDS: miSOPROStol 25 MCG TAB PO (22:48)
[2024-12-29 22:49] LABS: Abs Immature Grans 0.08 10^3/uL (0.0-0.06); HCT 32.9 % (36.0-46.0); HGB 11.0 g/dL (11.2-15.7); Immature Grans % 0.6 %; MCH 28.4 pg (27.0-33.0); MCHC 33.4 % (32.0-36.0); MCV 85 fL (80-95); MPV 11.0 fL (8.0-11.0); Platelet Count 232 10^3/uL (130-400); RBC 3.87 10^6/uL (3.93-5.22); RDW 13.4 % (11.7-14.6); RDW-SD 41.6 fL; WBC 12.82 10^3/uL (4.4-10.8)
[2024-12-29 23:11] LABS: ALT 169 U/L (14-59); AST 71 U/L (15-37); Albumin 2.3 g/dL (3.4-5.0); Alkaline Phosphatase 132 U/L (46-116); Anion Gap 10.3 mmol/L (3-11); BUN 7 mg/dL (7-18); Bilirubin, Total 0.2 mg/dL (0.2-1.0); CO2 22.7 mmol/L (21.0-32.0); Calcium 9.0 mg/dL (8.5-10.1); Chloride 104 mmol/L (98-107); Estimated GFR 135.07 (mL/min/1.73m2); Glucose 96 mg/dL (74-106); Potassium 3.6 mmol/L (3.5-5.1); Sodium 137 mmol/L (136-145); Total Protein 7.0 g/dL (6.4-8.2)
[2024-12-30] VITALS (193 sets, daily range): BP systolic 113–169; BP diastolic 62–111; PULSE 71–115; RESP 16–22; TEMP 36.4–36.8; O2SAT 86–100; BMI 44.4
[2024-12-30] MEDS: miSOPROStol 25 MCG TAB PO (02:51)
--- NOTE | 2024-12-30 06:38 | PGE_ITS ---
Date of service: 12/30/24 Time of Service: 06:38 Assessment and Plan Assessment and plan (1) Elevated transaminase level: Status: Acute (2) 38 weeks gestation of : Status: Acute (3) Premature rupture of membranes: Status: Acute Assessment and plan: A: IUP at 38w5d Category I surveillance PROM x 10 hours Cervical ripening in progress, now s/p PO misoprostol x 2 Newly elevated transaminases- suspect related to obesity. No evidence of HELLP, nor clinical evidence for cholestasis. Hep B/C negative earlier in without new risk factors. P: - Discussed continuing active management of PROM with Pitocin, to which she gives consent. - Subjective progress in early labor as contractions have increased to a moderate intensity. Will defer SVE until contractions are more consistently q 2- 3 minutes so as to reduce risk for infection. - Discussed maternal position changes to facilitate rotation - Comfort measures discussed, and Kaitlin is not feeling as though she needs assistance with comfort at this time. - Will plan to discuss transaminitis with Dr. Acharya in the morning. Objective Abnormal lab results 12/29/24 Range/Units 22:35 WBC 12.82 H (4.4-10.8) 10^3/uL RBC 3.87 L (3.93-5.22) 10^6/uL Hgb 11.0 L (11.2-15.7) g/dL Hct 32.9 L (36.0-46.0) % Absolute Neutrophils 9.22 H (1.2-6.7) 10^3/uL Absolute Monocytes 0.99 H (0.1-0.8) 10^3/uL Creatinine 0.5 L (0.55-1.02) mg/dL AST 71 H (15-37) U/L ALT 169 H (14-59) U/L Alkaline Phosphatase 132 H (46-116) U/L Albumin 2.3 L (3.4-5.0) g/dL Temp Pulse Resp BP 97.8 F 74 16 129/81 12/30/24 04:51 12/30/24 04:51 12/30/24 04:51 12/30/24 04:51 Laboratory Results WBC 12.82 10^3/uL (4.4-10.8) H 12/29/24 22:35 RBC 3.87 10^6/uL (3.93-5.22) L 12/29/24 22:35 Hgb 11.0 g/dL (11.2-15.7) L 12/29/24 22:35 Hct 32.9 % (36.0-46.0) L 12/29/24 22:35 MCV 85 fL (80-95) 12/29/24 22:35 MCH 28.4 pg (27.0-33.0) 12/29/24 22:35 MCHC 33.4 % (32.0-36.0) 12/29/24 22:35 RDW 13.4 % (11.7-14.6) 12/29/24 22:35 Plt Count 232 10^3/uL (130-400) 12/29/24 22:35 MPV 11.0 fL (8.0-11.0) 12/29/24 22:35 Immature Gran % 0.6 % 12/29/24 22:35 Neutrophils % 71.9 % 12/29/24 22:35 Lymphocytes % 17.5 % 12/29/24 22:35 Monocytes % 7.7 % 12/29/24 22:35 Eosinophils % 2.1 % 12/29/24:35 Basophils % 0.2 % 12/29/24: Nucleated RBC % 0.0 % (0.0-0.3) 12/29/24 22:35 Absolute Neutrophils 9.22 10^3/uL (1.2-6.7) H 12/29/24 22:35 Absolute Lymphocytes 2.24 10^3/uL (1.2-3.4) 12/29/24 22:35 Absolute Monocytes 0.99 10^3/uL (0.1-0.8) H 12/29/24 22:35 Absolute Eosinophils 0.27 10^3/uL (0.0-0.7) 12/29/24:35 Absolute Basophils 0.03 10^3/uL (0.0-0.2) 12/29/24 22:35 Sodium 137 mmol/L (136-145) 12/29/24 22:35 Potassium 3.6 mmol/L (3.5-5.1) 12/29/24 22:35 Chloride 104 mmol/L (98-107) 12/29/24 22:35 Carbon Dioxide 22.7 mmol/L (21.0-32.0) 12/29/24 22:35 Anion Gap 10.3 mmol/L (3-11) 12/29/24 22:35 BUN 7 mg/dL (7-18) 12/29/24 22:35 Creatinine 0.5 mg/dL (0.55-1.02) L 12/29/24 22:35 Est GFR (CKD-EPI 2020) 135.07 (mL/min/1.73m2) 12/29/24 22:35 Glucose 96 mg/dL (74-106) 12/29/24 22:35 Calcium 9.0 mg/dL (8.5-10.1) 12/29/24 22:35 Total Bilirubin 0.2 mg/dL (0.2-1.0) 12/29/24 22:35 AST 71 U/L (15-37) H 12/29/24 22:35 ALT 169 U/L (14-59) H 12/29/24 22:35 Alkaline Phosphatase 132 U/L (46-116) H 12/29/24 22:35 Total Protein 7.0 g/dL (6.4-8.2) 12/29/24 22:35 Albumin 2.3 g/dL (3.4-5.0) L 12/29/24 22:35 ABO/Rh A Positive 12/29/24 22:35 Antibody Screen NEGATIVE 12/29/24 22:35 Objective Narrative Objective Narrative: VS: currently normal, initial diastolic blood pressure upon arrival was mildly elevated UCs: q 3-5 minutes, moderate to palpation FHTs: 120s, moderate variability, + accels, no decels SVE: deferred Subjective Interval history since last seen: Kaitlin has been resting in bed, she awake for a lot of the night with anticipation, but has been able to doze more recently. She reports that contractions do not feel any closer together, but they do feel stronger. The only discomfort she feels is in her lower back. She continues to leak clear fluid. She is supported in the room by her partner and her mother. Results Hemoglobin/Hematocrit: Hgb 11.0 g/dL (11.2-15.7) L 12/29/24 22:35 Hct 32.9 % (36.0-46.0) L 12/29/24 22:35 Abnormal Lab Findings: Abnormal Labs 12/29/24 22:35 WBC 12.82 H RBC 3.87 L Hgb 11.0 L Hct 32.9 L Absolute Neutrophils 9.22 H Absolute Monocytes 0.99 H Creatinine 0.5 L AST 71 H ALT 169 H Alkaline Phosphatase 132 H Albumin 2.3 L
[2024-12-30] MEDS: Lactated Ringers 1,000 ML 125 ML IV (06:52)
[2024-12-30] MEDS: Normal Saline Flush 10 ML SYR IVP (06:53)
[2024-12-30] MEDS: Oxytocin/Normal Saline 30 UNIT/500 ML BAG 2 UNITS IV (06:57)
--- NOTE | 2024-12-30 07:48 | NUR.NOTE ---
Nursing Note: Nani Butler placed, Pt encouraged to change positions and move around. Birthing ball brought into room.
--- NOTE | 2024-12-30 08:12 | OBCE_ITS ---
Date of service: 12/30/24 Time of Service: 08:12 Assessment and Plan Assessment and plan (1) 38 weeks gestation of : Status: Acute Assessment and plan: 24 yo at 38 5/7 as dated by 7 wk US (ASCENCION 01/20/2025) PROM as of 1999 on 12/30 - Rh+ / Rub I / VZV I / GBS neg) - complicated by obesity (starting BMI 42, TWG 13 lbs, 28 wk 1 hr OGTT 127, Last EFW 42%tile at 35 wks), cHTN, PROM - Planning to breastfeed - Contraceptive plans: pending - Undergoing IOL for PROM; s/p 2 doses of misoprostol. Last SVE 12/30 at 0845 4- / -1 - Consulted to our services for transamnitis (ALT / AST - 4.14 - , 10.11 - / 71) - - - - - - - - - - - - - - - 12/30/2024 at 0900 ([place]): Patient was assessed with counter waitress/waiter at the bedside. We discussed my concerns for superimposed pre-eclampsia with severe features based on elevated liver enzymes double from baseline. Blood pressures are only modestly elevated and consistent with history of cHTN; while everything outside of her elevated liver enzymes is largely consistent with baseline and reassuring, I suggest we proceed with magnesium therapy given her h/o normal liver enzymes and lack of evidence for any other rationale for the elevation. A Hepatitis panel will be drawn in an abundance of caution, and lab trends to be drawn with it. Special Projects Coordinator did not initially have a urine prot:Cr level performed due to patient's ruptured status and difficulties in collecting an accurate sample. However, I will have one performed for baseline. Patient would like to avoid aldridge for now; we will proceed with bedpan collection of urine hourly; however, if we are unable to urinate hourly and/or UOP is less than 50 cc's an hour, we will plan for aldridge catheter. - - - - - - - - - - - - - - - *Patient has epi pen prescribed for anaphylaxis to THC (2) Premature rupture of membranes: Status: Acute (3) Preeclampsia complicating hypertension: Status: Acute (4) Stage 1 hypertension: Status: Acute (5) Body mass index (BMI) of 40.1 to 44.9 in adult: Status: Acute (6) Eczema: History of Present Illness Narrative: 24 yo at 38 5/7 as dated by 7 wk US (ASCENCION 01/20/2025) PROM as of 1999 on 12/30 - Rh+ / Rub I / VZV I / GBS neg) - complicated by obesity (starting BMI 42, TWG 13 lbs, 28 wk 1 hr OGTT 127, Last EFW 42%tile at 35 wks), cHTN, PROM - Planning to breastfeed - Contraceptive plans: pending - Undergoing IOL for PROM; s/p 2 doses of misoprostol. Last SVE 12/30 at 0845 4- / -1 - Consulted to our services for transamnitis (ALT / AST - .14 - , . - ) - - - - - - - - - - - - - - - 12/30/2024 ([place]): Ms. Marsh is consulted to our services for incidentally noted elevation in ALT and AST. She has a known h/o cHTN and has been on ASA during her . Her blood pressures have been well controlled throughout her without medications. Since arrival, she has had two diastolic readings in the 90's, but no severe range blood pressures. She denies s/sx of pre-eclampsia, though she does report generalized discomfort all along her right side when rotated onto her right side (The baby's back also palpates along this side). She denies any recent changes in foods or restaurants and denies any nausea / vomiting. She denies any known h/o liver issues, and she is noted to have a normal AST and ALT recorded in June of this year. She is found resting comfortably on her left side, though she does pause and guard with contractions. She is well supported by her mother and the FOB both of whom are at bedside. - - - - - - - - - - - - - - - Review of Systems All systems reviewed & are unremarkable except as noted in HPI and below PFSH All Active Problems (Updated 12/30/24 @ 09:05 by Mary Grace Dillon, DO) Preeclampsia complicating hypertension (Acute) Elevated transaminase level (Acute) 38 weeks gestation of (Acute) Premature rupture of membranes (Acute) Marijuana use (Acute) Costochondritis (Acute) Family history of cardiac arrhythmia (Acute) pt's mother had an [place], implanted defibrillator in her 40's Family history of aortic valve disorder (Acute) pt's mother had valve replacement in her 40's Chronic eczema (Acute) Family history of Spqa-Wtbqi-Kqyamwa disease (Acute) Baby's father (pt's fiance) Body mass index (BMI) of 40.1 to 44.9 in adult (Acute) Chronic constipation (Acute) (Acute) Stage 1 hypertension (Acute) Medical History Eczema Arthritis Rib injury Dragged by a cow. Pain x 1 year. Family history of diabetes mellitus in grandmother Family history of diabetes mellitus in grandfather Foreign body in right ear Removed ENT, 08/30/23 Tobacco user Obesity Menorrhagia Generalized anxiety disorder Disorder of speech or language development Allergic rhinitis due to tree pollen Ganglion, unspecified site right wrist surgery 2023 Decreased hearing Surgical History History of hand surgery Family History Mother Heart disease [place]. Chronic cardiac arrhythmia Depression Anxiety Asthma Maternal Grandfather Heart disease [place] age 47 Chronic cardiac arrhythmia Cancer lung cancer Arthritis Father Depression Anxiety Maternal Grandmother Diabetes Arthritis Paternal Grandfather Arthritis Diabetes Brother Asthma Hypertension Social History Smoking/Tobacco Use Status: Former Tobacco Use tobacco type: e-cigarettes Smoking risk assessment performed?: Yes Substance use type: does not use Housing: apartment Do you feel safe at home: Yes Do you feel safe in your relationship?: Yes History History 2 1 Para 0 Hx # Term Pregnancies 0 Multiple births 0 Hx # Pregnancies 0 Ectopic pregnancies 0 AB induced 0 Hx Number of Living Children 0 AB spontaneous 0 Exam Narrative Exam Narrative: general: Well nourished female in no immediate distress; uncomfortable with contractions pulm: No overt respiratory distress abd: gravid, no unique RUQ pain; spine palpated all along the right side ext: No edema psych: appropriate, cooperative : (per counter waitress/waiter) 4-5/60/-1 FHT: Cat 1 [employer] [place]: q2-5; no Pitocin Results Last Vital Signs Temp 97.9 F 12/30/24 07:19 Pulse 83 12/30/24 07:15 Resp 20 12/30/24 07:19 BP 136/97 H 12/30/24 07:15 Pulse Ox 97 12/30/24 07:19 Labs 12/29/24 22:35 12/29/24 22:35 Labs: Laboratory Results - last 24 hr 12/29/24 22:35 WBC 12.82 H RBC 3.87 L Hgb 11.0 L Hct 32.9 L MCV 85 MCH 28.4 MCHC 33.4 RDW 13.4 Plt Count 232 MPV 11.0 Immature Gran % 0.6 Neutrophils % 71.9 Lymphocytes % 17.5 Monocytes % 7.7 Eosinophils % 2.1 Basophils % 0.2 Nucleated RBC % 0.0 Absolute Neutrophils 9.22 H Absolute Lymphocytes 2.24 Absolute Monocytes 0.99 H Absolute Eosinophils 0.27 Absolute Basophils 0.03 Sodium 137 Potassium 3.6 Chloride 104 Carbon Dioxide 22.7 Anion Gap 10.3 BUN 7 Creatinine 0.5 L Est GFR (CKD-EPI 2020) 135.07 Glucose 96 Calcium 9.0 Total Bilirubin 0.2 AST 71 H ALT 169 H Alkaline Phosphatase 132 H Total Protein 7.0 Albumin 2.3 L ABO/Rh A Positive Antibody Screen NEGATIVE
[2024-12-30] MEDS: MAGNESIUM SULFATE 20 GM/500 ML BAG IV_INF ×2 (09:03→17:26)
--- NOTE | 2024-12-30 09:08 | W.PM.OBNL1 ---
Date of service: 12/30/24 Time of Service: 09:08 Assessment and Plan Assessment and plan (1) Preeclampsia complicating hypertension: Status: Acute (2) Elevated transaminase level: Status: Acute (3) 38 weeks gestation of : Status: Acute (4) Premature rupture of membranes: Status: Acute Assessment and plan: A: Blood pressure now diagnostic of HTN. Consulted with Dr. Acharya on this, and diagnosis made for pre-eclampsia with severe features given that ALT is more than doubled. Category 1 surveillance Cervical ripening complete, currently on Pitocin, and s/p PO misoprostol x 2 PROM x 13 hours P: - Per Dr. Acharya, will intitiate MgSO4 prophylaxis - Continue to titrate Pitocin to achieve and maintain moderate to strong contractions q 2-3 minutes - See Dr. Acharya's note for complete plan - Reassess in 4 hours or sooner PRN Objective Abnormal lab results 12/29/24 Range/Units 22:35 WBC 12.82 H (4.4-10.8) 10^3/uL RBC 3.87 L (3.93-5.22) 10^6/uL Hgb 11.0 L (11.2-15.7) g/dL Hct 32.9 L (36.0-46.0) % Absolute Neutrophils 9.22 H (1.2-6.7) 10^3/uL Absolute Monocytes 0.99 H (0.1-0.8) 10^3/uL Creatinine 0.5 L (0.55-1.02) mg/dL AST 71 H (15-37) U/L ALT 169 H (14-59) U/L Alkaline Phosphatase 132 H (46-116) U/L Albumin 2.3 L (3.4-5.0) g/dL Temp Pulse Resp BP Pulse Ox 97.9 F 72 20 138/111 H 97 12/30/24 07:19 12/30/24 08:55 12/30/24 07:19 12/30/24 08:55 12/30/24 07:19 Laboratory Results WBC 12.82 10^3/uL (4.4-10.8) H 12/29/24 22:35 RBC 3.87 10^6/uL (3.93-5.22) L 12/29/24 22:35 Hgb 11.0 g/dL (11.2-15.7) L 12/29/24 22:35 Hct 32.9 % (36.0-46.0) L 12/29/24 22:35 MCV 85 fL (80-95) 12/29/24 22:35 MCH 28.4 pg (27.0-33.0) 12/29/24 22:35 MCHC 33.4 % (32.0-36.0) 12/29/24 22:35 RDW 13.4 % (11.7-14.6) 12/29/24 22:35 Plt Count 232 10^3/uL (130-400) 12/29/24 22:35 MPV 11.0 fL (8.0-11.0) 12/29/24 22:35 Immature Gran % 0.6 % 12/29/24 22:35 Neutrophils % 71.9 % 12/29/24 22:35 Lymphocytes % 17.5 % 12/29/24 22:35 Monocytes % 7.7 % 12/29/24 22:35 Eosinophils % 2.1 % 12/29/24 22:35 Basophils % 0.2 % 12/29/24:35 Nucleated RBC % 0.0 % (0.0-0.3) 12/29/24 22:35 Absolute Neutrophils 9.22 10^3/uL (1.2-6.7) H 12/29/24 22:35 Absolute Lymphocytes 2.24 10^3/uL (1.2-3.4) 12/29/24 22:35 Absolute Monocytes 0.99 10^3/uL (0.1-0.8) H 12/29/24 22:35 Absolute Eosinophils 0.27 10^3/uL (0.0-0.7) 12/29/24 22:35 Absolute Basophils 0.03 10^3/uL (0.0-0.2) 12/29/24 22:35 Sodium 137 mmol/L (136-145) 12/29/24 22:35 Potassium 3.6 mmol/L (3.5-5.1) 12/29/24 22:35 Chloride 104 mmol/L (98-107) 12/29/24 22:35 Carbon Dioxide 22.7 mmol/L (21.0-32.0) 12/29/24 22:35 Anion Gap 10.3 mmol/L (3-11) 12/29/24 22:35 BUN 7 mg/dL (7-18) 12/29/24 22:35 Creatinine 0.5 mg/dL (0.55-1.02) L 12/29/24 22:35 Est GFR (CKD-EPI 2020) 135.07 (mL/min/1.73m2) 12/29/24 22:35 Glucose 96 mg/dL (74-106) 12/29/24 22:35 Calcium 9.0 mg/dL (8.5-10.1) 12/29/24 22:35 Total Bilirubin 0.2 mg/dL (0.2-1.0) 12/29/24 22:35 AST 71 U/L (15-37) H 12/29/24 22:35 ALT 169 U/L (14-59) H 12/29/24 22:35 Alkaline Phosphatase 132 U/L (46-116) H 12/29/24 22:35 Total Protein 7.0 g/dL (6.4-8.2) 12/29/24 22:35 Albumin 2.3 g/dL (3.4-5.0) L 12/29/24 22:35 ABO/Rh A Positive 12/29/24:35 Antibody Screen NEGATIVE 12/29/24 22:35 Objective Narrative Objective Narrative: VS: now has had a second diastolic blood pressure > 90, more than 4 hours since her initial elevated diastolic BP UCs: 3-3.5 minutes, moderate to palpation FHTs: 120s, moderate variability, + accels, intermittent early decels SVE: 4.5 cm / 60% / -1 station, no caput, no moulding Pitocin: 4 mU / min Subjective Interval history since last seen: Kaitlin continues to rest in bed. She pauses to breath through contractions. Her pain predominantly continues to be in her lower back. She remains in good spirits. ROS: Constitutional: generally feels well Respiratory: no SOB CV: reports chest pain, but upon further explanation she describes it as rib pain (which has been persistant in ) Neuro: no headache, no scotoma GI: no upper abdominal pain OB: + FM, continues to leak clear fluid Results Hemoglobin/Hematocrit: Hgb 11.0 g/dL (11.2-15.7) L 12/29/24 22:35 Hct 32.9 % (36.0-46.0) L 12/29/24 22:35 Abnormal Lab Findings: Abnormal Labs 12/29/24 22:35 WBC 12.82 H RBC 3.87 L Hgb 11.0 L Hct 32.9 L Absolute Neutrophils 9.22 H Absolute Monocytes 0.99 H Creatinine 0.5 L AST 71 H ALT 169 H Alkaline Phosphatase 132 H Albumin 2.3 L
[2024-12-30] MEDS: Acetaminophen 325 MG TAB 650 MG PO (09:09)
--- NOTE | 2024-12-30 09:37 | W.PM.OBNL1 ---
Date of service: 12/30/24 Time of Service: 09:37 Assessment and Plan Assessment and plan (1) Preeclampsia complicating hypertension: Status: Acute (2) Elevated transaminase level: Status: Acute (3) 38 weeks gestation of : Status: Acute (4) Premature rupture of membranes: Status: Acute Assessment and plan: A: IUP at 38w5d Maternal request for pain management Category II surveillance, overall reassuring Pre-eclampsia with severe features, currently on MgS04 prophylaxis Entering active labor P: Pain management options discussed. She would like parenteral opiates. IV Stadol and IM Vistaril ordered. Objective Abnormal lab results 12/29/24 Range/Units 22:35 WBC 12.82 H (4.4-10.8) 10^3/uL RBC 3.87 L (3.93-5.22) 10^6/uL Hgb 11.0 L (11.2-15.7) g/dL Hct 32.9 L (36.0-46.0) % Absolute Neutrophils 9.22 H (1.2-6.7) 10^3/uL Absolute Monocytes 0.99 H (0.1-0.8) 10^3/uL Creatinine 0.5 L (0.55-1.02) mg/dL AST 71 H (15-37) U/L ALT 169 H (14-59) U/L Alkaline Phosphatase 132 H (46-116) U/L Albumin 2.3 L (3.4-5.0) g/dL Temp Pulse Resp BP Pulse Ox 97.5 F L 87 20 141/97 H 97 12/30/24 09:19 12/30/24 09:30 12/30/24 09:19 12/30/24 09:30 12/30/24 09:19 Laboratory Results WBC 12.82 10^3/uL (4.4-10.8) H 12/29/24 22:35 RBC 3.87 10^6/uL (3.93-5.22) L 12/29/24 22:35 Hgb 11.0 g/dL (11.2-15.7) L 12/29/24 22:35 Hct 32.9 % (36.0-46.0) L 12/29/24 22:35 MCV 85 fL (80-95) 12/29/24 22:35 MCH 28.4 pg (27.0-33.0) 12/29/24 22:35 MCHC 33.4 % (32.0-36.0) 12/29/24 22:35 RDW 13.4 % (11.7-14.6) 12/29/24 22:35 Plt Count 232 10^3/uL (130-400) 12/29/24 22:35 MPV 11.0 fL (8.0-11.0) 12/29/24 22:35 Immature Gran % 0.6 % 12/29/24 22:35 Neutrophils % 71.9 % 12/29/24 22:35 Lymphocytes % 17.5 % 12/29/24: Monocytes % 7.7 % 12/29/24: Eosinophils % 2.1 % 12/29/24: Basophils % 0.2 % 12/29/24: Nucleated RBC % 0.0 % (0.0-0.3) 12/29/24 22:35 Absolute Neutrophils 9.22 10^3/uL (1.2-6.7) H 12/29/24 22:35 Absolute Lymphocytes 2.24 10^3/uL (1.2-3.4) 12/29/24 22:35 Absolute Monocytes 0.99 10^3/uL (0.1-0.8) H 12/29/24 22:35 Absolute Eosinophils 0.27 10^3/uL (0.0-0.7) 12/29/24:35 Absolute Basophils 0.03 10^3/uL (0.0-0.2) 12/29/24 22:35 Sodium 137 mmol/L (136-145) 12/29/24 22:35 Potassium 3.6 mmol/L (3.5-5.1) 12/29/24 22:35 Chloride 104 mmol/L (98-107) 12/29/24 22:35 Carbon Dioxide 22.7 mmol/L (21.0-32.0) 12/29/24 22:35 Anion Gap 10.3 mmol/L (3-11) 12/29/24 22:35 BUN 7 mg/dL (7-18) 12/29/24 22:35 Creatinine 0.5 mg/dL (0.55-1.02) L 12/29/24 22:35 Est GFR (CKD-EPI 2020) 135.07 (mL/min/1.73m2) 12/29/24 22:35 Glucose 96 mg/dL (74-106) 12/29/24 22:35 Calcium 9.0 mg/dL (8.5-10.1) 12/29/24 22:35 Total Bilirubin 0.2 mg/dL (0.2-1.0) 12/29/24 22:35 AST 71 U/L (15-37) H 12/29/24 22:35 ALT 169 U/L (14-59) H 12/29/24 22:35 Alkaline Phosphatase 132 U/L (46-116) H 12/29/24 22:35 Total Protein 7.0 g/dL (6.4-8.2) 12/29/24 22:35 Albumin 2.3 g/dL (3.4-5.0) L 12/29/24 22:35 ABO/Rh A Positive 12/29/24 22:35 Antibody Screen NEGATIVE 12/29/24 22:35 Objective Narrative Objective Narrative: UCs: q 2.5-2.5 minutes FHTs: 120s, moderate variability, + accels, intermittent early decels, intermittent variable decels Pitocin: 4 mU / min Subjective Interval history since last seen: Kaitlin is requesting pain relief. Results Hemoglobin/Hematocrit: Hgb 11.0 g/dL (11.2-15.7) L 12/29/24 22:35 Hct 32.9 % (36.0-46.0) L 12/29/24 22:35 Abnormal Lab Findings: Abnormal Labs 12/29/24 22:35 WBC 12.82 H RBC 3.87 L Hgb 11.0 L Hct 32.9 L Absolute Neutrophils 9.22 H Absolute Monocytes 0.99 H Creatinine 0.5 L AST 71 H ALT 169 H Alkaline Phosphatase 132 H Albumin 2.3 L
[2024-12-30 09:42] LABS: Abs Immature Grans 0.07 10^3/uL (0.0-0.06); HCT 33.8 % (36.0-46.0); HGB 11.2 g/dL (11.2-15.7); Immature Grans % 0.5 %; MCH 28.1 pg (27.0-33.0); MCHC 33.1 % (32.0-36.0); MCV 85 fL (80-95); MPV 10.8 fL (8.0-11.0); Platelet Count 207 10^3/uL (130-400); RBC 3.98 10^6/uL (3.93-5.22); RDW 13.4 % (11.7-14.6); RDW-SD 41.5 fL; WBC 13.73 10^3/uL (4.4-10.8)
[2024-12-30 09:53] LABS: Obstetrics Magnesium 3.7 mg/dL (1.8-2.4)
[2024-12-30 10:00] LABS: ALT 157 U/L (14-59); AST 65 U/L (15-37); Albumin 2.4 g/dL (3.4-5.0); Alkaline Phosphatase 135 U/L (46-116); Anion Gap 9.2 mmol/L (3-11); BUN 5 mg/dL (7-18); Bilirubin, Total 0.2 mg/dL (0.2-1.0); CO2 23.8 mmol/L (21.0-32.0); Calcium 8.6 mg/dL (8.5-10.1); Chloride 103 mmol/L (98-107); Estimated GFR 135.07 (mL/min/1.73m2); Glucose 84 mg/dL (74-106); Potassium 3.5 mmol/L (3.5-5.1); Sodium 136 mmol/L (136-145); Total Protein 7.0 g/dL (6.4-8.2); Uric Acid 3.3 mg/dL (2.6-6.0)
[2024-12-30] MEDS: NIFEdipine 10 MG CAP (10:00)
[2024-12-30] MEDS: hydrOXYzine 25 MG/ML VIAL IM (10:00)
[2024-12-30] MEDS: NIFEdipine 10 MG CAP PO (10:00)
[2024-12-30] MEDS: NIFEdipine-CR 30 MG TABCR (10:00)
--- NOTE | 2024-12-30 11:08 | NUR.NOTE ---
Nursing Note: Dr Dillon and Simona the airport baggage screener in room. This RN auscultated wheezes in left lower and mid lobe.Sat 98% no shortness of breathe per pt. No0 increased edema at this itme, 1+ pitting bilateral lower extremities. Pt has not voided since 8am.Dr Dillon notified and in with pt now.
--- NOTE | 2024-12-30 11:17 | PGE_ITS ---
Date of service: 12/30/24 Time of Service: 11:19 Assessment and Plan Assessment and plan (1) 37 weeks gestation of : Status: Acute Assessment and plan: 24 yo at 38 5/7 as dated by 7 wk US (ASCENCION 01/20/2025) PROM as of 1999 on 12/30 - Rh+ / Rub I / VZV I / GBS neg) - complicated by obesity (starting BMI 42, TWG 13 lbs, 28 wk 1 hr OGTT 127, Last EFW 42%tile at 35 wks), cHTN, PROM - Planning to breastfeed - Contraceptive plans: pending - Undergoing IOL for PROM; s/p 2 doses of misoprostol. Last SVE 12/30 at 0845 4- 60 / -1 - Consulted to our services for transamnitis (ALT / AST - 4.14 - / , 10.11 - 169 / 71. 10.12 - 157 / 65) - - - - - - - - - - - - - - - 12/30/2024 at 0900 ([place]): Patient was assessed with cylinder sander operator at the bedside. We discussed my concerns for superimposed pre-eclampsia with severe features based on elevated liver enzymes double from baseline. Blood pressures are only modestly elevated and consistent with history of cHTN; while everything outside of her elevated liver enzymes is largely consistent with baseline and reassuring, I suggest we proceed with magnesium therapy given her h/o normal liver enzymes and lack of evidence for any other rationale for the elevation. A Hepatitis panel will be drawn in an abundance of caution, and lab trends to be drawn with it. Animal Treatment Investigator did not initially have a urine prot:Cr level performed due to patient's ruptured status and difficulties in collecting an accurate sample. However, I will have one performed for baseline. Patient would like to avoid aldridge for now; we will proceed with bedpan collection of urine hourly; however, if we are unable to urinate hourly and/or UOP is less than 50 cc's an hour, we will plan for aldridge catheter. [facility] Over the course of the last few hours, the patient's blood pressures increased into the severe ranging necessitating initiation of blood pressure medications (30 mg Nifedipine XR q24); blood pressures are now outside severe range. However, she has had interval development of changes of expiratory pulmonary rub noted throughout her lung mayer (not just indepedent); 02 sat remains appropriate as does HR and RR (appropriate for labor growing in intensity). She has made modest change in her cervix but the nature of her labor has acutely intensified. She has not been urinating hourly with a bedpan. I discussed all of the above with the patient and family at bedside. We discussed the notable importance of strict I's and O's given the medications she has on-board as well as her clinic status and newfound lung changes. She attempted to urinate in a bedpan but was unable to evacuate her bladder; therefore, a aldridge catheter was discussed and placed. 600 cc's evacuated. Patient does have a h/o smoking but has not been active since prior to . I will re-evaluate the lung sounds in approximately an hour and we will keep an eye on O2 sat. IV fluids decreased to 25 cc's / hr; magnesium to continue as prescribed for now. - - - - - - - - - - - - - - - *Patient has epi pen prescribed for anaphylaxis to THC Objective Abnormal lab results 12/29/24 12/30/24 Range/Units 22:35 09:25 WBC 12.82 H 13.73 H (4.4-10.8) 10^3/uL RBC 3.87 L (3.93-5.22) 10^6/uL Hgb 11.0 L (11.2-15.7) g/dL Hct 32.9 L 33.8 L (36.0-46.0) % Absolute Neutrophils 9.22 H 10.28 H (1.2-6.7) 10^3/uL Absolute Monocytes 0.99 H 0.95 H (0.1-0.8) 10^3/uL BUN 5 L (7-18) mg/dL Creatinine 0.5 L 0.5 L (0.55-1.02) mg/dL Magnesium 3.7 H (1.8-2.4) mg/dL AST 71 H 65 H (15-37) U/L ALT 169 H 157 H (14-59) U/L Alkaline Phosphatase 132 H 135 H (46-116) U/L Albumin 2.3 L 2.4 L (3.4-5.0) g/dL Temp Pulse Resp BP Pulse Ox 97.5 F L 93 H 20 142/87 H 98 12/30/24 10:22 12/30/24 11:16 12/30/24 11:06 12/30/24 11:16 12/30/24 11:06 Laboratory Results WBC 13.73 10^3/uL (4.4-10.8) H 12/30/24 09:25 RBC 3.98 10^6/uL (3.93-5.22) 12/30/24 09:25 Hgb 11.2 g/dL (11.2-15.7) 12/30/24 09:25 Hct 33.8 % (36.0-46.0) L 12/30/24 09: MCV 85 fL (80-95) 12/30/24 09: MCH 28.1 pg (27.0-33.0) 12/30/24 09: MCHC 33.1 % (32.0-36.0) 12/30/24 09: RDW 13.4 % (11.7-14.6) 12/30/24 09:25 Plt Count 207 10^3/uL (130-400) 12/30/24 09: MPV 10.8 fL (8.0-11.0) 12/30/24 09:25 Immature Gran % 0.5 % 12/30/24 09:25 Neutrophils % 74.9 % 12/30/24 09:25 Lymphocytes % 15.3 % 12/30/24 09:25 Monocytes % 6.9 % 12/30/24 09:25 Eosinophils % 2.2 % 12/30/24 09:25 Basophils % 0.2 % 12/30/24 09:25 Nucleated RBC % 0.0 % (0.0-0.3) 12/30/24 09:25 Absolute Neutrophils 10.28 10^3/uL (1.2-6.7) H 12/30/24 09:25 Absolute Lymphocytes 2.10 10^3/uL (1.2-3.4) 12/30/24 09:25 Absolute Monocytes 0.95 10^3/uL (0.1-0.8) H 12/30/24 09:25 Absolute Eosinophils 0.30 10^3/uL (0.0-0.7) 12/30/24 09:25 Absolute Basophils 0.03 10^3/uL (0.0-0.2) 12/30/24 09:25 Sodium 136 mmol/L (136-145) 12/30/24 09:25 Potassium 3.5 mmol/L (3.5-5.1) 12/30/24 09:25 Chloride 103 mmol/L (98-107) 12/30/24 09:25 Carbon Dioxide 23.8 mmol/L (21.0-32.0) 12/30/24 09:25 Anion Gap 9.2 mmol/L (3-11) 12/30/24 09:25 BUN 5 mg/dL (7-18) L 12/30/24 09:25 Creatinine 0.5 mg/dL (0.55-1.02) L 12/30/24 09:25 Est GFR (CKD-EPI 2020) 135.07 (mL/min/1.73m2) 12/30/24 09:25 Glucose 84 mg/dL (74-106) 12/30/24 09:25 Uric Acid 3.3 mg/dL (2.6-6.0) 12/30/24 09:25 Calcium 8.6 mg/dL (8.5-10.1) 12/30/24 09:25 Magnesium 3.7 mg/dL (1.8-2.4) H 12/30/24 09:25 Total Bilirubin 0.2 mg/dL (0.2-1.0) 12/30/24 09:25 AST 65 U/L (15-37) H 12/30/24 09:25 ALT 157 U/L (14-59) H 12/30/24 09:25 Alkaline Phosphatase 135 U/L (46-116) H 12/30/24 09:25 Total Protein 7.0 g/dL (6.4-8.2) 12/30/24 09:25 Albumin 2.4 g/dL (3.4-5.0) L 12/30/24 09:25 ABO/Rh A Positive 12/29/24 22:35 Antibody Screen NEGATIVE 12/29/24 22:35 Objective Narrative Objective Narrative: general: Well nourished female lying on her left side; very uncomfortable with contractions pulm: expiratory rub noted throughout the lung mayer on both sides card: tachycardic without overt arrythmias or murmurs abd: stable ext: Trace non-pitting edema noted equally bilaterally psych: cooperative, appropriate FHT: 150, min to mod variability, positive for accels, no decels [place]: q3-5; cylinder sander operator palpates them at moderate. Pit at 5 SVE: 6/70/-1 per cylinder sander operator Subjective Interval history since last seen: Patient is growing increasingly uncomfortable. She is on 5 mU of Pitocin and contractions are growing in intensity. She has been initiated on Magnesium for pre-eclampsia with severe features. The nurse recently reported concerning surround auditory lung changes in the dependent regions of the lungs. Patient reports increasing discomfort along the right side making it so that she does not want to lay off of her left side. She denies SOB / CP. She continues to leak clear fluid. Her pre-eclampsia labs are noted to be stable. Results Hemoglobin/Hematocrit: Hgb 11.2 g/dL (11.2-15.7) 12/30/24 09:25 Hct 33.8 % (36.0-46.0) L 12/30/24 09:25 Abnormal Lab Findings: Abnormal Labs 12/29/24 12/30/24 22:35 09:25 WBC 12.82 H 13.73 H RBC 3.87 L Hgb 11.0 L Hct 32.9 L 33.8 L Absolute Neutrophils 9.22 H 10.28 H Absolute Monocytes 0.99 H 0.95 H BUN 5 L Creatinine 0.5 L 0.5 L Magnesium 3.7 H AST 71 H 65 H ALT 169 H 157 H Alkaline Phosphatase 132 H 135 H Albumin 2.3 L 2.4 L S02 98% on RA
[2024-12-30] MEDS: Calcium Carbonate *TUMS* 500 MG CHEW 1000 MG PO (11:44)
[2024-12-30 12:12] LABS: PROTEIN 9.5 mg/dL; Prot/Crea Ur Ratio 0.23
--- NOTE | 2024-12-30 12:36 | W.PM.OBNL1 ---
Date of service: 12/30/24 Time of Service: 12:36 Assessment and Plan Assessment and plan (1) 37 weeks gestation of : Status: Acute Assessment and plan: 24 yo at 38 5/7 as dated by 7 wk US (ASCENCION 01/20/2025) PROM as of 1999 on 12/30 - Rh+ / Rub I / VZV I / GBS neg) - complicated by obesity (starting BMI 42, TWG 13 lbs, 28 wk 1 hr OGTT 127, Last EFW 42%tile at 35 wks), cHTN, PROM - Planning to breastfeed - Contraceptive plans: pending - Undergoing IOL for PROM; s/p 2 doses of misoprostol. Last SVE 12/30 at 0845 4- 60 / -1 - Consulted to our services for transamnitis (ALT / AST - 4.14 - / , 10.11 - 169 / 71. 10.12 - 157 / 65) - - - - - - - - - - - - - - - 12/30/2024 at 0900 ([place]): Patient was assessed with adventure challenge instructor at the bedside. We discussed my concerns for superimposed pre-eclampsia with severe features based on elevated liver enzymes double from baseline. Blood pressures are only modestly elevated and consistent with history of cHTN; while everything outside of her elevated liver enzymes is largely consistent with baseline and reassuring, I suggest we proceed with magnesium therapy given her h/o normal liver enzymes and lack of evidence for any other rationale for the elevation. A Hepatitis panel will be drawn in an abundance of caution, and lab trends to be drawn with it. Dynamometer Tester Engine did not initially have a urine prot:Cr level performed due to patient's ruptured status and difficulties in collecting an accurate sample. However, I will have one performed for baseline. Patient would like to avoid aldridge for now; we will proceed with bedpan collection of urine hourly; however, if we are unable to urinate hourly and/or UOP is less than 50 cc's an hour, we will plan for aldridge catheter. [facility] Over the course of the last few hours, the patient's blood pressures increased into the severe ranging necessitating initiation of blood pressure medications (30 mg Nifedipine XR q24); blood pressures are now outside severe range. However, she has had interval development of changes of expiratory pulmonary rub noted throughout her lung mayer (not just indepedent); 02 sat remains appropriate as does HR and RR (appropriate for labor growing in intensity). She has made modest change in her cervix but the nature of her labor has acutely intensified. She has not been urinating hourly with a bedpan. I discussed all of the above with the patient and family at bedside. We discussed the notable importance of strict I's and O's given the medications she has on-board as well as her clinic status and newfound lung changes. She attempted to urinate in a bedpan but was unable to evacuate her bladder; therefore, a aldridge catheter was discussed and placed. 600 cc's evacuated. Patient does have a h/o smoking but has not been active since prior to . I will re-evaluate the lung sounds in approximately an hour and we will keep an eye on O2 sat. IV fluids decreased to 25 cc's / hr; magnesium to continue as prescribed for now. 12/30/2024 at 1235 ([place]): Patient assessed at bedside. Contractions continue to grow in intensity and patient reports she is increasingly uncomfortable; managing pain well with conservative measures and family support. She is found laying on her back; she reports the pain that was all along her right side is now mostly along her right hip. She does feel as though the pain is moving downward. Swelling is stable. UOP is clear and reassuring. Lung sounds are stable at worst (still appreciated but not seemingly as profound or easy to hear). Cardiac auscaltation stable. Patient continues to denies chest pain or shortness of breath. - - - - - - - - - - - - - - - *Patient has epi pen prescribed for anaphylaxis to THC Objective Abnormal lab results 12/29/24 12/30/24 Range/Units 22:35 09:25 WBC 12.82 H 13.73 H (4.4-10.8) 10^3/uL RBC 3.87 L (3.93-5.22) 10^6/uL Hgb 11.0 L (11.2-15.7) g/dL Hct 32.9 L 33.8 L (36.0-46.0) % Absolute Neutrophils 9.22 H 10.28 H (1.2-6.7) 10^3/uL Absolute Monocytes 0.99 H 0.95 H (0.1-0.8) 10^3/uL BUN 5 L (7-18) mg/dL Creatinine 0.5 L 0.5 L (0.55-1.02) mg/dL Magnesium 3.7 H (1.8-2.4) mg/dL AST 71 H 65 H (15-37) U/L ALT 169 H 157 H (14-59) U/L Alkaline Phosphatase 132 H 135 H (46-116) U/L Albumin 2.3 L 2.4 L (3.4-5.0) g/dL Temp Pulse Resp BP Pulse Ox 97.5 F L 85 20 127/82 98 12/30/24 10:22 12/30/24 12:12/30/24 11:06 12/30/24 12:12/30/24 11:06 Laboratory Results WBC 13.73 10^3/uL (4.4-10.8) H 12/30/24 09: RBC 3.98 10^6/uL (3.93-5.22) 12/30/24 09: Hgb 11.2 g/dL (11.2-15.7) 12/30/24 09: Hct 33.8 % (36.0-46.0) L 12/30/24: MCV 85 fL (80-95) 12/30/24 09:25 MCH 28.1 pg (27.0-33.0) 12/30/24 09: MCHC 33.1 % (32.0-36.0) 12/30/24: RDW 13.4 % (11.7-14.6) 12/30/24 09: Plt Count 207 10^3/uL (130-400) 12/30/24 09: MPV 10.8 fL (8.0-11.0) 12/30/24: Immature Gran % 0.5 % 12/30/24 09:25 Neutrophils % 74.9 % 12/30/24 09:25 Lymphocytes % 15.3 % 12/30/24 09:25 Monocytes % 6.9 % 12/30/24 09:25 Eosinophils % 2.2 % 12/30/24:25 Basophils % 0.2 % 10/12/25 09:25 Nucleated RBC % 0.0 % (0.0-0.3) 12/30/24 09:25 Absolute Neutrophils 10.28 10^3/uL (1.2-6.7) H 12/30/24 09:25 Absolute Lymphocytes 2.10 10^3/uL (1.2-3.4) 12/30/24 09:25 Absolute Monocytes 0.95 10^3/uL (0.1-0.8) H 12/30/24 09:25 Absolute Eosinophils 0.30 10^3/uL (0.0-0.7) 12/30/24 09:25 Absolute Basophils 0.03 10^3/uL (0.0-0.2) 12/30/24 09:25 Sodium 136 mmol/L (136-145) 12/30/24 09:25 Potassium 3.5 mmol/L (3.5-5.1) 12/30/24 09:25 Chloride 103 mmol/L (98-107) 12/30/24 09:25 Carbon Dioxide 23.8 mmol/L (21.0-32.0) 12/30/24 09:25 Anion Gap 9.2 mmol/L (3-11) 12/30/24 09:25 BUN 5 mg/dL (7-18) L 12/30/24 09:25 Creatinine 0.5 mg/dL (0.55-1.02) L 12/30/24 09:25 Est GFR (CKD-EPI 2020) 135.07 (mL/min/1.73m2) 12/30/24 09:25 Glucose 84 mg/dL (74-106) 12/30/24 09:25 Uric Acid 3.3 mg/dL (2.6-6.0) 12/30/24 09:25 Calcium 8.6 mg/dL (8.5-10.1) 12/30/24 09:25 Magnesium 3.7 mg/dL (1.8-2.4) H 12/30/24 09:25 Total Bilirubin 0.2 mg/dL (0.2-1.0) 12/30/24 09:25 AST 65 U/L (15-37) H 12/30/24 09:25 ALT 157 U/L (14-59) H 12/30/24 09:25 Alkaline Phosphatase 135 U/L (46-116) H 12/30/24 09:25 Total Protein 7.0 g/dL (6.4-8.2) 12/30/24 09:25 Albumin 2.4 g/dL (3.4-5.0) L 12/30/24 09:25 Ur Random Creatinine 40.19 mg/dL 12/30/24 11:40 U Random Total Protein 9.5 mg/dL 12/30/24 11:40 U [place] Prot/Creat Ratio 0.23 12/30/24 11:40 ABO/Rh A Positive 12/29/24 22:35 Antibody Screen NEGATIVE 12/29/24 22:35 Subjective Interval history since last seen: Physical reassessment at bedside Results Hemoglobin/Hematocrit: Hgb 11.2 g/dL (11.2-15.7) 12/30/24 09:25 Hct 33.8 % (36.0-46.0) L 12/30/24 09:25 Abnormal Lab Findings: Abnormal Labs 12/29/24 12/30/24 22:35 09:25 WBC 12.82 H 13.73 H RBC 3.87 L Hgb 11.0 L Hct 32.9 L 33.8 L Absolute Neutrophils 9.22 H 10.28 H Absolute Monocytes 0.99 H 0.95 H BUN 5 L Creatinine 0.5 L 0.5 L Magnesium 3.7 H AST 71 H 65 H ALT 169 H 157 H Alkaline Phosphatase 132 H 135 H Albumin 2.3 L 2.4 L
--- NOTE | 2024-12-30 12:59 | PGE_ITS ---
Date of service: 12/30/24 Time of Service: 12:59 Assessment and Plan Assessment and plan (1) 37 weeks gestation of : Status: Acute (2) Preeclampsia complicating hypertension: Status: Acute (3) Elevated transaminase level: Status: Acute (4) 38 weeks gestation of : Status: Acute Assessment and plan: A: IUP at 38w5d Maternal request for pain relief Pre-eclampsia with severe features, currently on MgS04, blood pressures stable after a severe exacerbation (received 10 mg of nifedipine and 30 mg nifedipine XL) PROM x 15 hours, on Pitocin for active management P: - Discussed pain relief option. Kaitlin would like to use NO. - Continue present care - Dr. Acharya involved in evaluation and management of pre-eclampsia Objective Abnormal lab results 12/29/24 12/30/24 Range/Units 22:35 09:25 WBC 12.82 H 13.73 H (4.4-10.8) 10^3/uL RBC 3.87 L (3.93-5.22) 10^6/uL Hgb 11.0 L (11.2-15.7) g/dL Hct 32.9 L 33.8 L (36.0-46.0) % Absolute Neutrophils 9.22 H 10.28 H (1.2-6.7) 10^3/uL Absolute Monocytes 0.99 H 0.95 H (0.1-0.8) 10^3/uL BUN 5 L (7-18) mg/dL Creatinine 0.5 L 0.5 L (0.55-1.02) mg/dL Magnesium 3.7 H (1.8-2.4) mg/dL AST 71 H 65 H (15-37) U/L ALT 169 H 157 H (14-59) U/L Alkaline Phosphatase 132 H 135 H (46-116) U/L Albumin 2.3 L 2.4 L (3.4-5.0) g/dL Temp Pulse Resp BP Pulse Ox 97.7 F 88 20 135/90 98 12/30/24 12:00 12/30/24 12:47 12/30/24 12:00 12/30/24 12:47 12/30/24 12:00 Laboratory Results WBC 13.73 10^3/uL (4.4-10.8) H 12/30/24 09:25 RBC 3.98 10^6/uL (3.93-5.22) 12/30/24 09:25 Hgb 11.2 g/dL (11.2-15.7) 12/30/24 09:25 Hct 33.8 % (36.0-46.0) L 12/30/24 09:25 MCV 85 fL (80-95) 12/30/24 09:25 MCH 28.1 pg (27.0-33.0) 12/30/24 09: MCHC 33.1 % (32.0-36.0) 12/30/24 09: RDW 13.4 % (11.7-14.6) 12/30/24 09: Plt Count 207 10^3/uL (130-400) 12/30/24 09: MPV 10.8 fL (8.0-11.0) 12/30/24 09: Immature Gran % 0.5 % 12/30/24 09:25 Neutrophils % 74.9 % 12/30/24 09:25 Lymphocytes % 15.3 % 12/30/24 09:25 Monocytes % 6.9 % 12/30/24 09:25 Eosinophils % 2.2 % 12/30/24: Basophils % 0.2 % 12/30/24: Nucleated RBC % 0.0 % (0.0-0.3) 12/30/24 09:25 Absolute Neutrophils 10.28 10^3/uL (1.2-6.7) H 12/30/24 09:25 Absolute Lymphocytes 2.10 10^3/uL (1.2-3.4) 12/30/24 09:25 Absolute Monocytes 0.95 10^3/uL (0.1-0.8) H 12/30/24 09:25 Absolute Eosinophils 0.30 10^3/uL (0.0-0.7) 12/30/24 09:25 Absolute Basophils 0.03 10^3/uL (0.0-0.2) 12/30/24 09:25 Sodium 136 mmol/L (136-145) 12/30/24 09:25 Potassium 3.5 mmol/L (3.5-5.1) 12/30/24 09:25 Chloride 103 mmol/L (98-107) 12/30/24 09:25 Carbon Dioxide 23.8 mmol/L (21.0-32.0) 12/30/24 09:25 Anion Gap 9.2 mmol/L (3-11) 12/30/24 09:25 BUN 5 mg/dL (7-18) L 12/30/24 09:25 Creatinine 0.5 mg/dL (0.55-1.02) L 12/30/24 09:25 Est GFR (CKD-EPI 2020) 135.07 (mL/min/1.73m2) 12/30/24 09:25 Glucose 84 mg/dL (74-106) 12/30/24 09:25 Uric Acid 3.3 mg/dL (2.6-6.0) 12/30/24 09:25 Calcium 8.6 mg/dL (8.5-10.1) 12/30/24 09:25 Magnesium 3.7 mg/dL (1.8-2.4) H 12/30/24 09:25 Total Bilirubin 0.2 mg/dL (0.2-1.0) 12/30/24 09:25 AST 65 U/L (15-37) H 12/30/24 09:25 ALT 157 U/L (14-59) H 12/30/24 09:25 Alkaline Phosphatase 135 U/L (46-116) H 12/30/24 09:25 Total Protein 7.0 g/dL (6.4-8.2) 12/30/24 09:25 Albumin 2.4 g/dL (3.4-5.0) L 12/30/24 09:25 Ur Random Creatinine 40.19 mg/dL 12/30/24 11:40 U Random Total Protein 9.5 mg/dL 12/30/24 11:40 U [place] Prot/Creat Ratio 0.23 12/30/24 11:40 ABO/Rh A Positive 12/29/24 22:35 Antibody Screen NEGATIVE 12/29/24 22:35 Objective Narrative Objective Narrative: UCs: q 2-3 minutes, strong to palpation FHTs: 115, periods of minimal variability intermixed with moderate variability, + accels, + intermittent early and variable decels Pitocin: 7 mU / min Output: 700 mL per aldridge catheter in the past 2 hours Subjective Interval history since last seen: Kaitlin is requesting further pain relief. She had good relief with butorphanol and hydroxyzine, but it has worn off. She is well supported by her mother, aunt and partner. ROS: - Respiratory: denies SOB - Neuro: denies headache, denies scotoma - MS: continues to have right-sided pain (no RUQ), which is primarily in her hip - OB: no pelvic pressure Results Hemoglobin/Hematocrit: Hgb 11.2 g/dL (11.2-15.7) 12/30/24 09:25 Hct 33.8 % (36.0-46.0) L 12/30/24 09:25 Abnormal Lab Findings: Abnormal Labs 12/29/24 12/30/24 22:35 09:25 WBC 12.82 H 13.73 H RBC 3.87 L Hgb 11.0 L Hct 32.9 L 33.8 L Absolute Neutrophils 9.22 H 10.28 H Absolute Monocytes 0.99 H 0.95 H BUN 5 L Creatinine 0.5 L 0.5 L Magnesium 3.7 H AST 71 H 65 H ALT 169 H 157 H Alkaline Phosphatase 132 H 135 H Albumin 2.3 L 2.4 L
--- NOTE | 2024-12-30 13:22 | NUR.NOTE ---
Nursing Note: Pt is complaining about catheter causing pain, CNM to order lidocaine gel then paln to attempt position change.
[2024-12-30] MEDS: Lidocaine 2% Jelly 6 ML SYR TP (13:30)
--- NOTE | 2024-12-30 14:08 | PGE_ITS ---
Date of service: 12/30/24 Time of Service: 14:08 Assessment and Plan Assessment and plan (1) 37 weeks gestation of : Status: Acute (2) Preeclampsia complicating hypertension: Status: Acute (3) Elevated transaminase level: Status: Acute (4) 38 weeks gestation of : Status: Acute Assessment and plan: A: IUP at 38w5d Maternal request for regional anesthesia Category I-II monitoring Pre-eclampsia with severe features, on MgS04 prophylaxis, currently normotensive After expressing interest in an epidural, she was counseled further on risks related to epidural administration, which include: inadequate analgesia; maternal hypotension; urinary retention; heart rate changes (usually transient); anesthetic risks (very rare); and effects on length of labor. She was also counseled that regional anesthesia is not found to increase the risk of delivery. At this time, she would like to proceed with an epidural. P: - LR bolus started, CD [employer] renetta, Dr. Acharya notified - Given limited cervical change in the past 2.5 hours, will plan an IUPC once comfortable with the epidural Objective Abnormal lab results 12/29/24 12/30/24 Range/Units 22:35 09:25 WBC 12.82 H 13.73 H (4.4-10.8) 10^3/uL RBC 3.87 L (3.93-5.22) 10^6/uL Hgb 11.0 L (11.2-15.7) g/dL Hct 32.9 L 33.8 L (36.0-46.0) % Absolute Neutrophils 9.22 H 10.28 H (1.2-6.7) 10^3/uL Absolute Monocytes 0.99 H 0.95 H (0.1-0.8) 10^3/uL BUN 5 L (7-18) mg/dL Creatinine 0.5 L 0.5 L (0.55-1.02) mg/dL Magnesium 3.7 H (1.8-2.4) mg/dL AST 71 H 65 H (15-37) U/L ALT 169 H 157 H (14-59) U/L Alkaline Phosphatase 132 H 135 H (46-116) U/L Albumin 2.3 L 2.4 L (3.4-5.0) g/dL Temp Pulse Resp BP Pulse Ox 97.7 F 95 H 20 133/86 97 12/30/24 12:00 12/30/24 14:06 12/30/24 12:00 12/30/24 14:02 12/30/24 14:06 Laboratory Results WBC 13.73 10^3/uL (4.4-10.8) H 12/30/24 09:25 RBC 3.98 10^6/uL (3.93-5.22) 12/30/24 09:25 Hgb 11.2 g/dL (11.2-15.7) 12/30/24 09:25 Hct 33.8 % (36.0-46.0) L 12/30/24 09:25 MCV 85 fL (80-95) 12/30/24 09:25 MCH 28.1 pg (27.0-33.0) 12/30/24 09:25 MCHC 33.1 % (32.0-36.0) 12/30/24 09:25 RDW 13.4 % (11.7-14.6) 12/30/24 09:25 Plt Count 207 10^3/uL (130-400) 12/30/24 09:25 MPV 10.8 fL (8.0-11.0) 12/30/24 09:25 Immature Gran % 0.5 % 12/30/24 09:25 Neutrophils % 74.9 % 12/30/24 09:25 Lymphocytes % 15.3 % 12/30/24 09:25 Monocytes % 6.9 % 12/30/24 09:25 Eosinophils % 2.2 % 12/30/24 09:25 Basophils % 0.2 % 12/30/24 09:25 Nucleated RBC % 0.0 % (0.0-0.3) 12/30/24 09:25 Absolute Neutrophils 10.28 10^3/uL (1.2-6.7) H 12/30/24 09:25 Absolute Lymphocytes 2.10 10^3/uL (1.2-3.4) 12/30/24 09:25 Absolute Monocytes 0.95 10^3/uL (0.1-0.8) H 12/30/24 09:25 Absolute Eosinophils 0.30 10^3/uL (0.0-0.7) 12/30/24 09:25 Absolute Basophils 0.03 10^3/uL (0.0-0.2) 12/30/24 09:25 Sodium 136 mmol/L (136-145) 12/30/24 09:25 Potassium 3.5 mmol/L (3.5-5.1) 12/30/24 09:25 Chloride 103 mmol/L (98-107) 12/30/24 09:25 Carbon Dioxide 23.8 mmol/L (21.0-32.0) 12/30/24 09:25 Anion Gap 9.2 mmol/L (3-11) 12/30/24 09:25 BUN 5 mg/dL (7-18) L 12/30/24 09:25 Creatinine 0.5 mg/dL (0.55-1.02) L 12/30/24 09:25 Est GFR (CKD-EPI 2020) 135.07 (mL/min/1.73m2) 12/30/24 09:25 Glucose 84 mg/dL (74-106) 12/30/24 09:25 Uric Acid 3.3 mg/dL (2.6-6.0) 12/30/24 09:25 Calcium 8.6 mg/dL (8.5-10.1) 12/30/24 09:25 Magnesium 3.7 mg/dL (1.8-2.4) H 12/30/24 09:25 Total Bilirubin 0.2 mg/dL (0.2-1.0) 12/30/24 09:25 AST 65 U/L (15-37) H 12/30/24 09:25 ALT 157 U/L (14-59) H 12/30/24 09:25 Alkaline Phosphatase 135 U/L (46-116) H 12/30/24 09:25 Total Protein 7.0 g/dL (6.4-8.2) 12/30/24 09:25 Albumin 2.4 g/dL (3.4-5.0) L 12/30/24 09:25 Ur Random Creatinine 40.19 mg/dL 12/30/24 11:40 U Random Total Protein 9.5 mg/dL 12/30/24 11:40 U [place] Prot/Creat Ratio 0.23 12/30/24 11:40 ABO/Rh A Positive 12/29/24 22:35 Antibody Screen NEGATIVE 12/29/24 22:35 Objective Narrative Objective Narrative: UCs: q 2-3 minutes FHTs: 115, moderate variabilty with periods of minimal variability, intermittent early decels, + accels SVE: 6-7 cm / 70% / -1 station, no caput, no moulding Pitocin: 7 mU / min Subjective Interval history since last seen: Kaitlin is requesting an epidural. She has been using NO, but it is not as effective as she was hoping. Results Hemoglobin/Hematocrit: Hgb 11.2 g/dL (11.2-15.7) 12/30/24 09:25 Hct 33.8 % (36.0-46.0) L 12/30/24 09:25 Abnormal Lab Findings: Abnormal Labs 12/29/24 12/30/24 22:35 09:25 WBC 12.82 H 13.73 H RBC 3.87 L Hgb 11.0 L Hct 32.9 L 33.8 L Absolute Neutrophils 9.22 H 10.28 H Absolute Monocytes 0.99 H 0.95 H BUN 5 L Creatinine 0.5 L 0.5 L Magnesium 3.7 H AST 71 H 65 H ALT 169 H 157 H Alkaline Phosphatase 132 H 135 H Albumin 2.3 L 2.4 L
--- NOTE | 2024-12-30 14:22 | W.ANESPRE ---
General Info Date of Service Date Performed: 12/30/24 Height: 5 ft 3 in Weight: 113.852 kg Body Mass Index (BMI): 44.4 Meds Allergies and Home Medications Allergies Allergy/AdvReac Type Severity Reaction Status Date / Time marijuana (cannabis) Allergy Anaphylaxis Verified 11/28/24 14:54 Home Medication ?Medication ?Instructions ?Recorded epinephrine 0.3 mg/0.3 mL 0.3 mg IM ONCE PRN 07/22/23 injection, auto-injector (EpiPen 2-Candido) acetaminophen 500 mg tablet 500 mg PO Q6H PRN 08/30/23 vitamins 30 30 mg iron-10 1 cap PO DAILY 06/18/24 mg iron-folic acid 1 mg-om3 capsule aspirin 81 mg tablet,delayed 162 mg (2 x 81 mg) PO DAILY #90 07/02/24 release tabs pantoprazole 20 mg tablet,delayed 40 mg (2 x 20 mg) PO DAILY #60 tabs 11/09/24 release (Protonix) Current Visit Medications: Current Medications Generic Name Dose Route Start Last Admin Trade Name Freq PRN Reason Stop Dose Admin Acetaminophen 650 mg 12/30/24 08:43 12/30/24 09:09 Acetaminophen 325 Mg Tab PO 650 mg Q6H PRN PRN Administration Calcium Carbonate 1,000 mg 12/30/24 10:27 12/30/24 11:44 Calcium Carbonate *Tums* 500 Mg Chew PO 1,000 mg QID PRN PRN Administration Oxytocin/Sodium Chloride 30 unit in 500 mls @ 2 mls/hr 12/30/24 06:30 12/30/24 11:00 Pitocin/Normal Saline IV 6 milliunits/min INFUSION COUNT INCLUDES THE [facility] 6 mls/hr Protocol Titration 2 MILLIUNITS/MIN Magnesium Sulfate 20 gm in 500 mls @ 50 mls/hr 12/30/24 08:45 12/30/24 09:03 IV_INF 2 gm/hr INFUSION COUNT INCLUDES THE [facility] 50 mls/hr Protocol Administration 2 GM/HR Ringer's Solution 1,000 mls @ 50 mls/hr 12/30/24 09:00 IV INFUSION ETHAN Ringer's Solution 500 mls @ 500 mls/hr 12/30/24 14:16 IV 12/30/24 15:15 BOLUS ONE IV Miscellaneous Supplies 1 each 12/29/24 22:00 Iv Access IV DIRECTED COUNT INCLUDES THE [facility] IV Miscellaneous Supplies 1 each 12/30/24 06:30 Iv Access IV DIRECTED COUNT INCLUDES THE [facility] Lidocaine HCl 6 ml 12/30/24 13:30 12/30/24 13:30 Lidocaine 2% Jelly 6 Ml Syr TP 6 ml DIRECTED ETHAN Administration Misoprostol 25 mcg 12/29/24 22:00 12/30/24 02:51 Misoprostol 25 Mcg Tab PO 25 mcg Q4H ETHAN Administration Nifedipine 30 mg 12/31/24 08:30 Nifedipine-Cr 30 Mg Tabcr PO DAILY ETHAN Sodium Chloride 0 ml 12/29/24 22:00 Normal Saline Flush 10 Ml Syr IVP PRN PRN Sodium Chloride 0 ml 12/30/24 08:30 Normal Saline Flush 10 Ml Syr IVP BID ETHAN Sodium Chloride 0 ml 12/29/24 22:00 Normal Saline 10 Ml Vial IJ DIRECTED PRN Sodium Chloride 0 ml 12/30/24 06:22 12/30/24 06:53 Normal Saline Flush 10 Ml Syr IVP 10 ml PRN PRN Administration Sodium Chloride 0 ml 12/30/24 08:30 Normal Saline Flush 10 Ml Syr IVP BID ETHAN Sodium Chloride 0 ml 12/30/24 06:22 Normal Saline 10 Ml Vial IJ DIRECTED PRN Terbutaline Sulfate 0.25 mg 12/29/24 22:00 Terbutaline 1 Mg/Ml Vial SC PRN PRN PFSH Active Problems Active Problems: Problem Status Onset Code 37 weeks gestation of Acute Z3A.37 Preeclampsia complicating hypertension Acute O11.9 Elevated transaminase level Acute R74.01 38 weeks gestation of Acute Z3A.38 Premature rupture of membranes Acute O42.90 Marijuana use Acute F12.90 Costochondritis Acute M94.0 Family history of cardiac arrhythmia Acute Z82.49 Family history of aortic valve disorder Acute Z82.49 Chronic eczema Acute L30.9 Family history of Qhcm-Mahxq-Uilnwsj disease Acute Z82.69 Body mass index (BMI) of 40.1 to 44.9 in adult Acute Z68.41 Chronic constipation Acute K59.09 Acute Z34.90 Stage 1 hypertension Acute I10 Medical History Medical History Eczema Arthritis Rib injury Dragged by a cow. Pain x 1 year. Family history of diabetes mellitus in grandmother Family history of diabetes mellitus in grandfather Foreign body in right ear Removed ENT, 08/30/23 Tobacco user Obesity Menorrhagia Generalized anxiety disorder Disorder of speech or language development Allergic rhinitis due to tree pollen Ganglion, unspecified site right wrist surgery 2023 Decreased hearing Surgical History Surgical History History of hand surgery Tobacco Smoking/Tobacco Use Status: Former Tobacco Use Substance Use Substance use type: does not use Prental History History 1 Para 0 Hx # Term Pregnancies 0 Multiple births 0 Hx # Pregnancies 0 Ectopic pregnancies 0 AB induced 0 Hx Number of Living Children 0 AB spontaneous 0 Vital Signs and Lab Results Vital Signs Most Recent Vital Signs in EMR: Most Recent Vital Signs Temp Pulse Resp BP Pulse Ox 36.5 C 96 H 20 133/86 97 12/30/24 12:00 12/30/24 14:17 12/30/24 12:00 12/30/24 14:02 12/30/24 14:17 Lab Results 12/30/24 09:25 12/30/24 09:25 Blood Type / Crossmatch: Antibody Screen NEGATIVE 12/29/24 Complete Blood Count: WBC, (4.4-10.8) 13.73 10^3/uL H Today, 09:25 RBC, (3.93-5.22) 3.98 10^6/uL Today, 09:25 Hgb, (11.2-15.7) 11.2 g/dL Today, 09:25 Hct, (36.0-46.0) 33.8 % L Today, 09:25 Plt Count, (130-400) 207 10^3/uL Today, 09:25 Complete Metabolic Panel: Sodium, (136-145) 136 mmol/L Today, 09:25 Potassium, (3.5-5.1) 3.5 mmol/L Today, 09:25 Chloride, (98-107) 103 mmol/L Today, 09:25 Carbon Dioxide, (21.0-32.0) 23.8 mmol/L Today, 09:25 BUN, (7-18) 5 mg/dL L Today, 09:25 Creatinine, (0.55-1.02) 0.5 mg/dL L Today, 09:25 Est GFR (CKD-EPI 2020), (mL/min/1.73m2) 135.07 Today, 09:25 Magnesium, (1.8-2.4) 3.7 mg/dL H Today, 09:25 Calcium, (8.5-10.1) 8.6 mg/dL Today, 09:25 Albumin, (3.4-5.0) 2.4 g/dL L Today, 09:25 Glucose, (74-106) 84 mg/dL Today, 09:25 Liver Function Panel: ALT, (14-59) 157 U/L H Today, 09:25 AST, (15-37) 65 U/L H Today, 09:25
[2024-12-30] MEDS: Lactated Ringers 500 ML IV (14:30)
[2024-12-30] MEDS: Lactated Ringers 1,000 ML 50 ML IV (14:42)
--- NOTE | 2024-12-30 15:02 | NUR.NOTE ---
Nursing Note:Jacob Leon FREIGHT CALLER here to set up epidural per pt request
--- NOTE | 2024-12-30 15:59 | ANES.NEUR_ITS ---
Epidural/Spinal Catheter Date Performed: 12/30/24 Procedure Start: 15:15 Procedure Stop: 15:59 Requesting Provider: Dodie Ferris Procedure Location: Obstetrics Reason Performed: Labor Epidural Standard Monitors Applied: Blood Pressure, SpO2 and See EMR for corresponding vital signs Patient Position: Sitting Sedation Given (Indicate Dose Given): No Sedation given Patient Mental Status: Awake Sterility: Hand Hygiene, Surgical Cap, Surgical Mask, Sterile Gloves, Sterile Drape/Sheet and Chlorhexidine Procedure Location: L3-L4 Interspace Epidural Needle: Tuohy 18 Gauge Needle Length: 3.5 Inch Needle Approach: Midline Epidural Procedure: Skin Prepped, Sterile Drape Placed, 1% Lidocaine to skin and subcutaneous tissue with 25G needle, Tuohy Needle placed, FLORENCIO to Saline Used, Epidural Catheter Placed, Negative Heme, Negative CSF Flow and Tuohy Needle Removed Catheter Placed?: Catheter Placed Test Dose (Indicate Dose Given): 3ml 1.5% Lidocaine with 1:200K Epinephrine Given and Negative Test Dose Loss of Resistance Depth (cm): 8 Catheter depth at skin (cm): 13 Dressing: [place] Dressing Placed, Mastisol Used and Dressing reinforced with Tape Epidural Provi susie Bolus (Indicate Dose Given): Total bolus dose given in 3-5 ml divided doses and Total Ropivacaine 0.1% with Fentanyl 2mcg/ml Given from pump. (ml) Dose:: 5ml x2 Additives (Indicate Dose Given ): None Infusion Medication: Medication Infusion Began Medication Infusion: Ropivacaine 0.1% with Fentanyl 2mcg/ml Maintenance Infusion Rate (ml/hour): 10 PCEA Bolus Dose (ml): 5 Block Level: N/A Paresthesia: None Ultrasound: Used to darcie site Number of Attempts (See previous attempts in note section): 2 Procedure Tolerated: No Complications and Patient tolerated well Procedure Outcome: Successful Procedure Comment:: US to darcie back. Challenging to get into and maintain back position for placement. One space up with bone contact. Good FLORENCIO here, catheter placed and dosed with good relief. Educated on PCEA use as well as notify Rn if hands/f ingers have any numbness/tingling. Questions answered. Performed By: Jacob Leon
--- NOTE | 2024-12-30 16:03 | ANES.PREOP_ITS ---
General Info Date of Service Date Performed: 12/30/24 Height: 5 ft 3 in Weight: 113.852 kg Body Mass Index (BMI): 44.4 Meds Allergies and Home Medications Allergies Allergy/AdvReac Type Severity Reaction Status Date / Time marijuana (cannabis) Allergy Anaphylaxis Verified 11/28/24 14:54 Home Medication ?Medication ?Instructions ?Recorded epinephrine 0.3 mg/0.3 mL 0.3 mg IM ONCE PRN 07/22/23 injection, auto-injector (EpiPen 2-Candido) acetaminophen 500 mg tablet 500 mg PO Q6H PRN 08/30/23 vitamins 30 30 mg iron-10 1 cap PO DAILY 05/2125 mg iron-folic acid 1 mg-om3 capsule aspirin 81 mg tablet,delayed 162 mg (2 x 81 mg) PO NATALI LY #90 07/02/24 release tabs pantoprazole 20 mg tablet,delayed 40 mg (2 x 20 mg) PO DAILY #60 tabs 11/09/24 release (Protonix) Current Visit Medications: Current Medications Generic Name Dose Route Start Last Admin Trade Name Raymonq PRN Reason Stop Dose Admin Acetaminophen 650 mg 12/30/24 08:43 12/30/24 09:09 Acetaminophen 325 Mg Tab PO 650 mg Q6H PRN PRN Administration Calcium Carbonate 1,000 mg 12/30/24 10:27 12/30/24 11:44 Calcium Carbonate *Tums* 500 Mg Chew PO 1,000 mg QID PRN PRN Administration Ephedrine Sulfate 5 mg 12/30/24 15:01 Ephedrine 50 Mg/Ml Vial IVP DIRECTED PRN Fentanyl/Ropivacaine 200 ml 12/30/24 15:15 Fentanyl/Ropivacaine 2 Mcg/Ml And 0.1% 200 Ml [place] EP DIRECTED ETHAN Oxytocin/Sodium Chloride 30 unit in 500 mls @ 2 mls/hr 12/30/24 06:30 12/30/24 13:00 Pitocin/Normal Saline IV 8 milliunits/min INFUSION ETHAN 8 mls/hr Protocol Titration 2 MILLIUNITS/MIN Magnesium Sulfate 20 gm in 500 mls @ 50 mls/hr 12/30/24 08:45 12/30/24 09:03 IV_INF 2 gm/hr INFUSION ETHAN 50 mls/hr Protocol Administration 2 GM/HR Ringer's Solution 1,000 mls @ 50 mls/hr 12/30/24 09:00 12/30/24 14:42 IV 50 mls/hr INFUSION ETHAN Administration IV Miscellaneous Supplies 1 each 12/29/24 22:00 Iv Access IV DIRECTED ETHAN IV Miscellaneous Supplies 1 each 12/30/24 06:30 Iv Access IV DIRECTED ETHAN Lidocaine HCl 6 ml 12/30/24 13:30 12/30/24 13:30 Lidocaine 2% Jelly 6 Ml Syr TP 6 ml DIRECTED ETHAN Administration Misoprostol 25 mcg 12/29/24 22:00 12/30/24 02:51 Misoprostol 25 Mcg Tab PO 25 mcg Q4H ETHAN Administration Naloxone HCl 0 mg 12/30/24 15:01 Naloxone 0.4 Mg/Ml Vial IVP DIRECTED PRN Nifedipine 30 mg 12/31/24 08:30 Nifedipine-Cr 30 Mg Tabcr PO DAILY ETHAN Sodium Chloride 0 ml 12/29/24 22:00 Normal Saline Flush 10 Ml Syr IVP PRN PRN Sodium Chloride 0 ml 12/30/24 08:30 Normal Saline Flush 10 Ml Syr IVP BID ETHAN Sodium Chloride 0 ml 12/29/24 22:00 Normal Saline 10 Ml Vial IJ DIRECTED PRN Sodium Chloride 0 ml 12/30/24 06:22 12/30/24 06:53 Normal Saline Flush 10 Ml Syr IVP 10 ml PRN PRN Administration Sodium Chloride 0 ml 12/30/24 08:30 Normal Saline Flush 10 Ml Syr IVP BID ETHAN Sodium Chloride 0 ml 12/30/24 06:22 Normal Saline 10 Ml Vial IJ DIRECTED PRN Terbutaline Sulfate 0.25 mg 12/29/24 22:00 Terbutaline 1 Mg/Ml Vial SC PRN PRN PFSH Active Problems Active Problems: Problem Status Onset Code 37 weeks gestation of Acute Z3A.37 Preeclampsia complicating hypertension Acute O11.9 Elevated transaminase level Acute R74.01 38 weeks gestation of Acute Z3A.38 Premature rupture of membranes Acute O42.90 Marijuana use Acute F12.90 Costochondritis Acute M94.0 Family history of cardiac arrhythmia Acute Z82.49 Family history of aortic valve disorder Acute Z82.49 Chronic eczema Acute L30.9 Family history of Omdy-Jgoke-Inytxjs disease Acute Z82.69 Body mass index (BMI) of 40.1 to 44.9 in adult Acute Z68.41 Chronic constipation Acute K59.09 Acute Z34.90 Stage 1 hypertension Acute I10 Medical History Medical History Eczema Arthritis Rib injury Dragged by a cow. Pain x 1 year. Family history of diabetes mellitus in grandmother Family history of diabetes mellitus in grandfather Foreign body in right ear Removed ENT, 08/30/23 Tobacco user Obesity Menorrhagia Generalized anxiety disorder Disorder of speech or language development Allergic rhinitis due to tree pollen Ganglion, unspecified site right wrist surgery 2023 Decreased hearing Surgical History Surgical History History of hand surgery Tobacco Smoking/Tobacco Use Status: Former Tobacco Use Alcohol Alcohol Intake: never Substance Use Substance use type: does not use Prental History History 2 1 Para 0 Hx # Term Pregnancies 0 Multiple births 0 Hx # Pregnancies 0 Ectopic pregnancies 0 AB induced 0 Hx Number of Living Children 0 AB spontaneous 0 Vital Signs and Lab Results Vital Signs Most Recent Vital Signs in EMR: Most Recent Vital Signs Temp Pulse Resp BP Pulse Ox 36.5 C 92 H 18 133/73 97 12/30/24 14:47 12/30/24 15:59 12/30/24 14:47 12/30/24 15:59 12/30/24 15:58 Lab Results 12/30/24 09:25 12/30/24 09:25 Blood Type / Crossmatch: 2 Antibody Screen NEGATIVE 12/29/24 Complete Blood Count: 2 WBC, (4.4-10.8) 13.73 10^3/uL H Today, 09:25 RBC, (3.93-5.22) 3.98 10^6/uL Today, 09:25 Hgb, (11.2-15.7) 11.2 g/dL Today, 09:25 Hct, (36.0-46.0) 33.8 % L Today, 09:25 Plt Count, (130-400) 207 10^3/uL Today, 09:25 Complete Metabolic Panel: 2 Sodium, (136-145) 136 mmol/L Today, 09:25 Potassium, (3.5-5.1) 3.5 mmol/L Today, 09:25 Chloride, (98-107) 103 mmol/L Today, 09:25 Carbon Dioxide, (21.0-32.0) 23.8 mmol/L Today, 09:25 BUN, (7-18) 5 mg/dL L Today, 09:25 Creatinine, (0.55-1.02) 0.5 mg/dL L Today, 09:25 Est GFR (CKD-EPI 2020), (mL/min/1.73m2) 135.07 Today, 09:25 Magnesium, (1.8-2.4) 3.7 mg/dL H Today, 09:25 Calcium, (8.5-10.1) 8.6 mg/dL Today, 09:25 Albumin, (3.4-5.0) 2.4 g/dL L Today, 09:25 Glucose, (74-106) 84 mg/dL Today, 09:25 Liver Function Panel: 2 ALT, (14-59) 157 U/L H Today, 09:25 AST, (15-37) 65 U/L H Today, 09:25 Anesthesia Assessment and Plan Anesthesia History Personal History: No History of Anesthesia Complications Family History: No Family History of Anesthesia Complications Exercise Tolerance Exercise Tolerance: Metabolic Equivalents>4 Pertinent Negatives Pertinent Negatives: Other (Active GERD) Cardiac & Pulmonary Exam Cardiac Exam: Normal S1/S2 Heart Sounds Pulmonary Exam: Clear Bilateral Breath Sounds Implantable Cardiac Device Does patient have a Pacemaker or an ICD?: No Airway Exam Known Difficult Airway: No Mallampati Class: 2 Mouth Opening: Normal (> 3cm) Thyromental Distance: Less than 3 cm Neck Range of Motion: Full ROM Neck Circumference: Thick Teeth Condition: Normal Dentition ASA Classification ASA Score: ASA 3 Emergency Case?: No NPO Status NPO Status: Full Stomach Status Status: Confirmed Anesthesia Plan Resuscitation Status: Full Code Anesthesia Technique: Labor Epidural Airway Planned: Natural Airway Monitors Used: Standard Monitors
--- NOTE | 2024-12-30 16:17 | W.PM.OBNL1 ---
Date of service: 12/30/24 Time of Service: 16:17 Pelvic Exam Dilation: 6.5 Effacement (%): 80 station: -1 Assessment and Plan Assessment and plan (1) 37 weeks gestation of : Status: Acute (2) Preeclampsia complicating hypertension: Status: Acute (3) Elevated transaminase level: Status: Acute (4) 38 weeks gestation of : Status: Acute (5) Premature rupture of membranes: Status: Acute Assessment and plan: A: IUP at 38w5d Protracted progress in active labor, minimal cervical change in 5 hours despite use of Pitocin, suspect inadequate forces of labor Category II surveillance, overall reassuring PROM x 20 hours Pre-eclampsia with severe features, on MgS04, stable Regional anesthesia in place P: - Discussed IUPC placement with Kaitlin, who consents to placement. IUPC inserted easily. Initial MVUs 145. Pitocin titration increased with aim to achieve MVUs ~ 200 - Mg level ordered for routine surveillance of MgS04 - Reassess in 2 hours or sooner PRN Objective Abnormal lab results 12/29/24 12/30/24 Range/Units 22:35 09:25 WBC 12.82 H 13.73 H (4.4-10.8) 10^3/uL RBC 3.87 L (3.93-5.22) 10^6/uL Hgb 11.0 L (11.2-15.7) g/dL Hct 32.9 L 33.8 L (36.0-46.0) % Absolute Neutrophils 9.22 H 10.28 H (1.2-6.7) 10^3/uL Absolute Monocytes 0.99 H 0.95 H (0.1-0.8) 10^3/uL BUN 5 L (7-18) mg/dL Creatinine 0.5 L 0.5 L (0.55-1.02) mg/dL Magnesium 3.7 H (1.8-2.4) mg/dL AST 71 H 65 H (15-37) U/L ALT 169 H 157 H (14-59) U/L Alkaline Phosphatase 132 H 135 H (46-116) U/L Albumin 2.3 L 2.4 L (3.4-5.0) g/dL Temp Pulse Resp BP Pulse Ox 97.7 F 91 H 18 133/74 97 12/30/24 14:47 12/30/24 16:13 12/30/24 14:47 12/30/24 16:04 12/30/24 16:13 Laboratory Results WBC 13.73 10^3/uL (4.4-10.8) H 12/30/24 09:25 RBC 3.98 10^6/uL (3.93-5.22) 12/30/24 09:25 Hgb 11.2 g/dL (11.2-15.7) 12/30/24 09:25 Hct 33.8 % (36.0-46.0) L 12/30/24 09:25 MCV 85 fL (80-95) 12/30/24 09: MCH 28.1 pg (27.0-33.0) 12/30/24 09: MCHC 33.1 % (32.0-36.0) 12/30/24 09:25 RDW 13.4 % (11.7-14.6) 12/30/24 09:25 Plt Count 207 10^3/uL (130-400) 12/30/24 09:25 MPV 10.8 fL (8.0-11.0) 12/30/24 09:25 Immature Gran % 0.5 % 12/30/24 09:25 Neutrophils % 74.9 % 12/30/24 09:25 Lymphocytes % 15.3 % 12/30/24 09:25 Monocytes % 6.9 % 12/30/24 09:25 Eosinophils % 2.2 % 12/30/24 09:25 Basophils % 0.2 % 12/30/24 09: Nucleated RBC % 0.0 % (0.0-0.3) 12/30/24 09:25 Absolute Neutrophils 10.28 10^3/uL (1.2-6.7) H 12/30/24 09:25 Absolute Lymphocytes 2.10 10^3/uL (1.2-3.4) 12/30/24 09:25 Absolute Monocytes 0.95 10^3/uL (0.1-0.8) H 12/30/24 09:25 Absolute Eosinophils 0.30 10^3/uL (0.0-0.7) 12/30/24 09:25 Absolute Basophils 0.03 10^3/uL (0.0-0.2) 12/30/24 09:25 Sodium 136 mmol/L (136-145) 12/30/24 09:25 Potassium 3.5 mmol/L (3.5-5.1) 12/30/24 09:25 Chloride 103 mmol/L (98-107) 12/30/24 09:25 Carbon Dioxide 23.8 mmol/L (21.0-32.0) 12/30/24 09:25 Anion Gap 9.2 mmol/L (3-11) 12/30/24 09:25 BUN 5 mg/dL (7-18) L 12/30/24 09:25 Creatinine 0.5 mg/dL (0.55-1.02) L 12/30/24 09:25 Est GFR (CKD-EPI 2020) 135.07 (mL/min/1.73m2) 12/30/24 09:25 Glucose 84 mg/dL (74-106) 12/30/24 09:25 Uric Acid 3.3 mg/dL (2.6-6.0) 12/30/24 09:25 Calcium 8.6 mg/dL (8.5-10.1) 12/30/24 09:25 Magnesium 3.7 mg/dL (1.8-2.4) H 12/30/24 09:25 Total Bilirubin 0.2 mg/dL (0.2-1.0) 12/30/24 09:25 AST 65 U/L (15-37) H 12/30/24 09:25 ALT 157 U/L (14-59) H 12/30/24 09:25 Alkaline Phosphatase 135 U/L (46-116) H 12/30/24 09:25 Total Protein 7.0 g/dL (6.4-8.2) 12/30/24 09:25 Albumin 2.4 g/dL (3.4-5.0) L 12/30/24 09:25 Ur Random Creatinine 40.19 mg/dL 12/30/24 11:40 U Random Total Protein 9.5 mg/dL 12/30/24 11:40 U [place] Prot/Creat Ratio 0.23 12/30/24 11:40 ABO/Rh A Positive 12/29/24 22:35 Antibody Screen NEGATIVE 12/29/24 22:35 Objective Narrative Objective Narrative: UCs: q 2-3 minutes, moderate to strong to palpation FHTs: 120s, moderate variability, + accels, intermittent brief variable decels SVE: 6-6.5 cm / 80% / -1 station, small amount of caput Pitocin: 9 mU / min Urine output: adequate, assessed hourly Subjective Interval history since last seen: Kaitlin is comfortable since placement of epidural. She generally feels well, and is without headache, scotoma, upper abominal pain. Results Hemoglobin/Hematocrit: Hgb 11.2 g/dL (11.2-15.7) 12/30/24 09:25 Hct 33.8 % (36.0-46.0) L 12/30/24 09:25 Abnormal Lab Findings: Abnormal Labs 12/29/24 12/30/24 22:35 09:25 WBC 12.82 H 13.73 H RBC 3.87 L Hgb 11.0 L Hct 32.9 L 33.8 L Absolute Neutrophils 9.22 H 10.28 H Absolute Monocytes 0.99 H 0.95 H BUN 5 L Creatinine 0.5 L 0.5 L Magnesium 3.7 H AST 71 H 65 H ALT 169 H 157 H Alkaline Phosphatase 132 H 135 H Albumin 2.3 L 2.4 L
--- NOTE | 2024-12-30 16:48 | NUR.NOTE ---
Nursing Note:MD examining pt
--- NOTE | 2024-12-30 16:50 | PGE_ITS ---
Date of service: 12/30/24 Time of Service: 16:54 Assessment and Plan Assessment and plan (1) 38 weeks gestation of : Status: Acute Assessment and plan: 24 yo at 38 5/7 as dated by 7 wk US (ASCENCION 01/20/2025) PROM as of 1999 on 12/30 - Rh+ / Rub I / VZV I / GBS neg) - complicated by obesity (starting BMI 42, TWG 13 lbs, 28 wk 1 hr OGTT 127, Last EFW 42%tile at 35 wks), cHTN, PROM - Planning to breastfeed - Contraceptive plans: pending - Undergoing IOL for PROM; s/p 2 doses of misoprostol. Last SVE 12/30 at 0845 4- 60 / -1 - Consulted to our services for transamnitis (ALT / AST - 4.14 - / , 10.11 - 169 / 71. 10.12 - 157 / 65) - - - - - - - - - - - - - - - 12/30/2024 at 0900 ([place]): Patient was assessed with wafer batter mixer at the bedside. We discussed my concerns for superimposed pre-eclampsia with severe features based on elevated liver enzymes double from baseline. Blood pressures are only modestly elevated and consistent with history of cHTN; while everything outside of her elevated liver enzymes is largely consistent with baseline and reassuring, I suggest we proceed with magnesium therapy given her h/o normal liver enzymes and lack of evidence for any other rationale for the elevation. A Hepatitis panel will be drawn in an abundance of caution, and lab trends to be drawn with it. Equalizing Saw Operator did not initially have a urine prot:Cr level performed due to patient's ruptured status and difficulties in collecting an accurate sample. However, I will have one performed for baseline. Patient would like to avoid aldridge for now; we will proceed with bedpan collection of urine hourly; however, if we are unable to urinate hourly and/or UOP is less than 50 cc's an hour, we will plan for aldridge catheter. [facility] Over the course of the last few hours, the patient's blood pressures increased into the severe ranging necessitating initiation of blood pressure medications (30 mg Nifedipine XR q24); blood pressures are now outside severe range. However, she has had interval development of changes of expiratory pulmonary rub noted throughout her lung mayer (not just indepedent); 02 sat remains appropriate as does HR and RR (appropriate for labor growing in intensity). She has made modest change in her cervix but the nature of her labor has acutely intensified. She has not been urinating hourly with a bedpan. I discussed all of the above with the patient and family at bedside. We discussed the notable importance of strict I's and O's given the medications she has on-board as well as her clinic status and newfound lung changes. She attempted to urinate in a bedpan but was unable to evacuate her bladder; therefore, a aldridge catheter was discussed and placed. 600 cc's evacuated. Patient does have a h/o smoking but has not been active since prior to . I will re-evaluate the lung sounds in approximately an hour and we will keep an eye on O2 sat. IV fluids decreased to 25 cc's / hr; magnesium to continue as prescribed for now. 12/30/2024 at 1235 ([facility]): Patient assessed at bedside. Contractions continue to grow in intensity and patient reports she is increasingly uncomfortable; managing pain well with conservative measures and family support. She is found laying on her back; she reports the pain that was all along her right side is now mostly along her right hip. She does feel as though the pain is moving downward. Swelling is stable. UOP is clear and reassuring. Lung sounds are stable at worst (still appreciated but not seemingly as profound or easy to hear). Cardiac auscaltation stable. Patient continues to denies chest pain or shortness of breath. 12/30/2024 at 1650 [facility] Recent epidural placement; noted to have lower SO2 sat. Patient found resting comfortably in her bed; sleeping. Denies any known h/o FINA. No chest pain SOB. Swelling is stable. Lung sounds are actually improved from prior. Dermatome assessment from nurse reportedly appropriate. SO2 noted to improve when patient wakes. All vitals otherwise stable and/or appropriate. - - - - - - - - - - - - - - - *Patient has epi pen prescribed for anaphylaxis to THC (2) Premature rupture of membranes: Status: Acute (3) Preeclampsia complicating hypertension: Status: Acute (4) Body mass index (BMI) of 40.1 to 44.9 in adult: Status: Acute Objective Abnormal lab results 12/29/24 12/30/24 Range/Units 22:35 09:25 WBC 12.82 H 13.73 H (4.4-10.8) 10^3/uL RBC 3.87 L (3.93-5.22) 10^6/uL Hgb 11.0 L (11.2-15.7) g/dL Hct 32.9 L 33.8 L (36.0-46.0) % Absolute Neutrophils 9.22 H 10.28 H (1.2-6.7) 10^3/uL Absolute Monocytes 0.99 H 0.95 H (0.1-0.8) 10^3/uL BUN 5 L (7-18) mg/dL Creatinine 0.5 L 0.5 L (0.55-1.02) mg/dL Magnesium 3.7 H (1.8-2.4) mg/dL AST 71 H 65 H (15-37) U/L ALT 169 H 157 H (14-59) U/L Alkaline Phosphatase 132 H 135 H (46-116) U/L Albumin 2.3 L 2.4 L (3.4-5.0) g/dL Temp Pulse Resp BP Pulse Ox 97.9 F 80 18 129/73 99 12/30/24 16:18 12/30/24 16:48 12/30/24 16:43 12/30/24 16:38 12/30/24 16:48 Laboratory Results WBC 13.73 10^3/uL (4.4-10.8) H 12/30/24 09:25 RBC 3.98 10^6/uL (3.93-5.22) 12/30/24 09:25 Hgb 11.2 g/dL (11.2-15.7) 12/30/24: Hct 33.8 % (36.0-46.0) L 12/30/24:25 MCV 85 fL (80-95) 12/30/24 09:25 MCH 28.1 pg (27.0-33.0) 12/30/24 09: MCHC 33.1 % (32.0-36.0) 12/30/24 09:25 RDW 13.4 % (11.7-14.6) 12/30/24 09:25 Plt Count 207 10^3/uL (130-400) 12/30/24 09:25 MPV 10.8 fL (8.0-11.0) 12/30/24 09:25 Immature Gran % 0.5 % 12/30/24 09:25 Neutrophils % 74.9 % 12/30/24 09:25 Lymphocytes % 15.3 % 12/30/24 09: Monocytes % 6.9 % 12/30/24 09: Eosinophils % 2.2 % 12/30/24 09:25 Basophils % 0.2 % 12/30/24 09:25 Nucleated RBC % 0.0 % (0.0-0.3) 12/30/24 09: Absolute Neutrophils 10.28 10^3/uL (1.2-6.7) H 12/30/24 09:25 Absolute Lymphocytes 2.10 10^3/uL (1.2-3.4) 12/30/24 09: Absolute Monocytes 0.95 10^3/uL (0.1-0.8) H 12/30/24 09:25 Absolute Eosinophils 0.30 10^3/uL (0.0-0.7) 12/30/24 09:25 Absolute Basophils 0.03 10^3/uL (0.0-0.2) 12/30/24 09:25 Sodium 136 mmol/L (136-145) 12/30/24 09:25 Potassium 3.5 mmol/L (3.5-5.1) 12/30/24 09:25 Chloride 103 mmol/L (98-107) 12/30/24 09:25 Carbon Dioxide 23.8 mmol/L (21.0-32.0) 12/30/24 09:25 Anion Gap 9.2 mmol/L (3-11) 12/30/24 09:25 BUN 5 mg/dL (7-18) L 12/30/24 09:25 Creatinine 0.5 mg/dL (0.55-1.02) L 12/30/24 09:25 Est GFR (CKD-EPI 2020) 135.07 (mL/min/1.73m2) 12/30/24 09:25 Glucose 84 mg/dL (74-106) 12/30/24 09:25 Uric Acid 3.3 mg/dL (2.6-6.0) 12/30/24 09:25 Calcium 8.6 mg/dL (8.5-10.1) 12/30/24 09:25 Magnesium 3.7 mg/dL (1.8-2.4) H 12/30/24 09:25 Total Bilirubin 0.2 mg/dL (0.2-1.0) 12/30/24 09:25 AST 65 U/L (15-37) H 12/30/24 09:25 ALT 157 U/L (14-59) H 12/30/24 09:25 Alkaline Phosphatase 135 U/L (46-116) H 12/30/24 09:25 Total Protein 7.0 g/dL (6.4-8.2) 12/30/24 09:25 Albumin 2.4 g/dL (3.4-5.0) L 12/30/24 09:25 Ur Random Creatinine 40.19 mg/dL 12/30/24 11:40 U Random Total Protein 9.5 mg/dL 12/30/24 11:40 U [place] Prot/Creat Ratio 0.23 12/30/24 11:40 ABO/Rh A Positive 12/29/24 22:35 Antibody Screen NEGATIVE 12/29/24 22:35 Results Hemoglobin/Hematocrit: Hgb 11.2 g/dL (11.2-15.7) 12/30/24 09:25 Hct 33.8 % (36.0-46.0) L 12/30/24 09:25 Abnormal Lab Findings: Abnormal Labs 12/29/24 12/30/24 22:35 09:25 WBC 12.82 H 13.73 H RBC 3.87 L Hgb 11.0 L Hct 32.9 L 33.8 L Absolute Neutrophils 9.22 H 10.28 H Absolute Monocytes 0.99 H 0.95 H BUN 5 L Creatinine 0.5 L 0.5 L Magnesium 3.7 H AST 71 H 65 H ALT 169 H 157 H Alkaline Phosphatase 132 H 135 H Albumin 2.3 L 2.4 L
[2024-12-30 17:51] LABS: Magnesium 4.4 mg/dL (1.8-2.4)
--- NOTE | 2024-12-30 18:38 | NUR.NOTE ---
Nursing Note:Spinning babies done by Cinthia, bilateral side lying release.
--- NOTE | 2024-12-30 19:14 | W.PM.OBNL1 ---
Date of service: 12/30/24 Time of Service: 19:14 Assessment and Plan Assessment and plan (1) Arrested labor: Status: Acute (2) Preeclampsia complicating hypertension: Status: Acute (3) Elevated transaminase level: Status: Acute (4) 38 weeks gestation of : Status: Acute (5) Premature rupture of membranes: Status: Acute Assessment and plan: A: Arrest of dilation, no cervical change in 8 hours, with 2 hours of documented contractions of adequate strength in the past 2 hours PROM x 23 hours, no evidence for chorioamnionitis Category II surveillance Preeclampsia with severe features, on MgS04, stable P: - Discussed findings of arrest of dilation with Kaitlin and her family. We discussed that as she is stable and the fetus is tolerating labor well, she could continue to try for a vaginal , but that she also has met criteria for a . She feels certain that she would like to proceed with a surgical . Dr. Acharya notified and will be in to curriculum counselor Kaitlin. Objective Abnormal lab results 12/29/24 12/30/24 12/30/24 Range/Units 22:35 09:25 17:25 WBC 12.82 H 13.73 H (4.4-10.8) 10^3/uL RBC 3.87 L (3.93-5.22) 10^6/uL Hgb 11.0 L (11.2-15.7) g/dL Hct 32.9 L 33.8 L (36.0-46.0) % Absolute Neutrophils 9.22 H 10.28 H (1.2-6.7) 10^3/uL Absolute Monocytes 0.99 H 0.95 H (0.1-0.8) 10^3/uL BUN 5 L (7-18) mg/dL Creatinine 0.5 L 0.5 L (0.55-1.02) mg/dL Magnesium 3.7 H 4.4 H* (1.8-2.4) mg/dL AST 71 H 65 H (15-37) U/L ALT 169 H 157 H (14-59) U/L Alkaline Phosphatase 132 H 135 H (46-116) U/L Albumin 2.3 L 2.4 L (3.4-5.0) g/dL Temp Pulse Resp BP Pulse Ox 97.7 F 89 20 121/68 98 10/12/25 18:15 12/30/24 19:10 12/30/24 18:15 12/30/24 18:52 12/30/24 19:10 Laboratory Results WBC 13.73 10^3/uL (4.4-10.8) H 12/30/24 09:25 RBC 3.98 10^6/uL (3.93-5.22) 12/30/24 09:25 Hgb 11.2 g/dL (11.2-15.7) 12/30/24 09:25 Hct 33.8 % (36.0-46.0) L 12/30/24 09: MCV 85 fL (80-95) 12/30/24 09: MCH 28.1 pg (27.0-33.0) 12/30/24 09: MCHC 33.1 % (32.0-36.0) 12/30/24 09:25 RDW 13.4 % (11.7-14.6) 12/30/24 09:25 Plt Count 207 10^3/uL (130-400) 12/30/24 09:25 MPV 10.8 fL (8.0-11.0) 12/30/24 09:25 Immature Gran % 0.5 % 12/30/24 09:25 Neutrophils % 74.9 % 12/30/24 09:25 Lymphocytes % 15.3 % 12/30/24 09:25 Monocytes % 6.9 % 12/30/24 09:25 Eosinophils % 2.2 % 12/30/24 09:25 Basophils % 0.2 % 12/30/24 09:25 Nucleated RBC % 0.0 % (0.0-0.3) 12/30/24 09:25 Absolute Neutrophils 10.28 10^3/uL (1.2-6.7) H 12/30/24 09:25 Absolute Lymphocytes 2.10 10^3/uL (1.2-3.4) 12/30/24 09:25 Absolute Monocytes 0.95 10^3/uL (0.1-0.8) H 12/30/24 09:25 Absolute Eosinophils 0.30 10^3/uL (0.0-0.7) 12/30/24 09:25 Absolute Basophils 0.03 10^3/uL (0.0-0.2) 12/30/24 09:25 Sodium 136 mmol/L (136-145) 12/30/24 09:25 Potassium 3.5 mmol/L (3.5-5.1) 12/30/24 09:25 Chloride 103 mmol/L (98-107) 12/30/24 09:25 Carbon Dioxide 23.8 mmol/L (21.0-32.0) 12/30/24 09:25 Anion Gap 9.2 mmol/L (3-11) 12/30/24 09:25 BUN 5 mg/dL (7-18) L 12/30/24 09:25 Creatinine 0.5 mg/dL (0.55-1.02) L 12/30/24 09:25 Est GFR (CKD-EPI 2020) 135.07 (mL/min/1.73m2) 12/30/24 09:25 Glucose 84 mg/dL (74-106) 12/30/24 09:25 Uric Acid 3.3 mg/dL (2.6-6.0) 12/30/24 09:25 Calcium 8.6 mg/dL (8.5-10.1) 12/30/24 09:25 Magnesium 4.4 mg/dL (1.8-2.4) H* 12/30/24 17:25 Total Bilirubin 0.2 mg/dL (0.2-1.0) 12/30/24 09:25 AST 65 U/L (15-37) H 12/30/24 09:25 ALT 157 U/L (14-59) H 12/30/24 09:25 Alkaline Phosphatase 135 U/L (46-116) H 12/30/24 09:25 Total Protein 7.0 g/dL (6.4-8.2) 12/30/24 09:25 Albumin 2.4 g/dL (3.4-5.0) L 12/30/24 09:25 Ur Random Creatinine 40.19 mg/dL 12/30/24 11:40 U Random Total Protein 9.5 mg/dL 12/30/24 11:40 U [place] Prot/Creat Ratio 0.23 12/30/24 11:40 ABO/Rh A Positive 12/29/24 22:35 Antibody Screen NEGATIVE 12/29/24 22:35 Objective Narrative Objective Narrative: UCs: adequate MVUs since 1700 (except for a few 10 minute segments) FHTs: 130s, moderate variability, + accels, intermittent early and intermittent decels SVE: 6-6.5 cm / 80% / -1. Has been 6-7 cm since ~1100 today. Urine output: adequate Pitocin: 16 mU / min Subjective Interval history since last seen: Kaitlin remains comfortable with the epidural. She has done some Spinning Babies with the nursing staff. Results Hemoglobin/Hematocrit: Hgb 11.2 g/dL (11.2-15.7) 12/30/24 09:25 Hct 33.8 % (36.0-46.0) L 12/30/24 09:25 Abnormal Lab Findings: Abnormal Labs 12/29/24 12/30/24 12/30/24 22:35 09:25 17:25 WBC 12.82 H 13.73 H RBC 3.87 L Hgb 11.0 L Hct 32.9 L 33.8 L Absolute Neutrophils 9.22 H 10.28 H Absolute Monocytes 0.99 H 0.95 H BUN 5 L Creatinine 0.5 L 0.5 L Magnesium 3.7 H 4.4 H* AST 71 H 65 H ALT 169 H 157 H Alkaline Phosphatase 132 H 135 H Albumin 2.3 L 2.4 L
--- NOTE | 2024-12-30 19:23 | PGE_ITS ---
Date of service: 12/30/24 Time of Service: 19:23 Assessment and Plan Assessment and plan (1) Arrested labor: Status: Acute Assessment and plan: 24 yo at 38 5/7 as dated by 7 wk US (ASCENCION 01/20/2025) PROM as of 1999 on 12/30 - Rh+ / Rub I / VZV I / GBS neg - complicated by obesity (starting BMI 42, TWG 13 lbs, 28 wk 1 hr OGTT 127, Last EFW 42%tile at 35 wks), cHTN, PROM - Planning to breastfeed - Contraceptive plans: pending - Undergoing IOL for PROM; s/p 2 doses of misoprostol. Last SVE 12/30 at 0845 4- / -1 - Consulted to our services for transamnitis (ALT / AST - 4.14 - / , 10.11 - 169 / 71, 10.12 AM - 157 / 65) - - - - - - - - - - - - - - - 12/30/2024 at 0900 ([place]): Patient was assessed with community outreach manager at the bedside. We discussed my concerns for superimposed pre-eclampsia with severe features based on elevated liver enzymes double from baseline. Blood pressures are only modestly elevated and consistent with history of cHTN; while everything outside of her elevated liver enzymes is largely consistent with baseline and reassuring, I suggest we proceed with magnesium therapy given her h/o normal liver enzymes and lack of evidence for any other rationale for the elevation. A Hepatitis panel will be drawn in an abundance of caution, and lab trends to be drawn with it. Ramp Agent did not initially have a urine prot:Cr level performed due to patient's ruptured status and difficulties in collecting an accurate sample. However, I will have one performed for baseline. Patient would like to avoid aldridge for now; we will proceed with bedpan collection of urine hourly; however, if we are unable to urinate hourly and/or UOP is less than 50 cc's an hour, we will plan for aldridge catheter. 12/30/2024 at 1125 ([place]): Over the course of the last few hours, the patient's blood pressures increased into the severe ranging necessitating initiation of blood pressure medications (30 mg Nifedipine XR q24); blood pressures are now outside severe range. However, she has had interval development of changes of expiratory pulmonary rub noted throughout her lung mayer (not just indepedent); 02 sat remains appropriate as does HR and RR (appropriate for labor growing in intensity). She has made modest change in her cervix but the nature of her labor has acutely intensified. She has not been urinating hourly with a bedpan. I discussed all of the above with the patient and family at bedside. We discussed the notable importance of strict I's and O's given the medications she has on-board as well as her clinic status and newfound lung changes. She attempted to urinate in a bedpan but was unable to evacuate her bladder; therefore, a aldridge catheter was discussed and placed. 600 cc's evacuated. Patient does have a h/o smoking but has not been active since prior to . I will re-evaluate the lung sounds in approximately an hour and we will keep an eye on O2 sat. IV fluids decreased to 25 cc's / hr; magnesium to continue as prescribed for now. 12/30/2024 at 1235 ([facility]): Patient assessed at bedside. Contractions continue to grow in intensity and patient reports she is increasingly uncomfortable; managing pain well with conservative measures and family support. She is found laying on her back; she reports the pain that was all along her right side is now mostly along her right hip. She does feel as though the pain i s moving downward. Swelling is stable. UOP is clear and reassuring. Lung sounds are stable at worst (still appreciated but not seemingly as profound or easy to hear). Cardiac auscaltation stable. Patient continues to denies chest pain or shortness of breath. 12/30/2024 at 1650 ([facility]): Recent epidural placement; noted to have lower SO2 sat. Patient found resting comfortably in her bed; sleeping. Denies any known h/o FINA. No chest pain SOB. Swelling is stable. Lung sounds are actually improved from prior. Dermatome assessment from nurse reportedly appropriate. SO2 noted to improve when patient wakes. All vitals otherwise stable and/or appropriate. 12/30/2024 at 2130 ([facility]): Patient has been with [facility] for several hours. Pitocin has been titrated up to adequate contractions. However, despite these attempts, she has made little to no progress over the last several hours and has expressed a strong, independent interest in proceeding with section. I was called into speak with the patient regarding her desires. Patient was seen at bedside with her family. She is found resting comfortably, and volunteers interest in section. We reviewed the procedure and discussed risks. We discussed that, as with anytime we break the skin, there is a risk of bleeding, infection, blood clots to the legs and lungs, and damage to all surrounding structures. We discussed that there are risks associated with anesthesia as well as unforseen complications. We discussed that subsequent pregnancies can be complicated by malplacentation which can lead to severe morbidity and mortality. We discussed that cesareans are high risk for blood transfusion, and that blood transfusions are considered tissue transfusions so we watch for tissue reactions. We also discussed that there is a remote but real risk for the potential of transmission of blood bourne pathogens such as HIV and hepatitis. Patient verbalized understanding and all questions were answered to the patient and her family's satisfaction. She was consented for section with transfusion of blood products as needed. Ancef and Azithromycin ordered for prophylaxis. - - - - - - - - - - - - - - - *Patient has epi pen prescribed for anaphylaxis to THC Objective Abnormal lab results 12/29/24 12/30/24 12/30/24 Range/Units 22:35 09:25 17:25 WBC 12.82 H 13.73 H (4.4-10.8) 10^3/uL RBC 3.87 L (3.93-5.22) 10^6/uL Hgb 11.0 L (11.2-15.7) g/dL Hct 32.9 L 33.8 L (36.0-46.0) % Absolute Neutrophils 9.22 H 10.28 H (1.2-6.7) 10^3/uL Absolute Monocytes 0.99 H 0.95 H (0.1-0.8) 10^3/uL BUN 5 L (7-18) mg/dL Creatinine 0.5 L 0.5 L (0.55-1.02) mg/dL Magnesium 3.7 H 4.4 H* (1.8-2.4) mg/dL AST 71 H 65 H (15-37) U/L ALT 169 H 157 H (14-59) U/L Alkaline Phosphatase 132 H 135 H (46-116) U/L Albumin 2.3 L 2.4 L (3.4-5.0) g/dL Temp Pulse Resp BP Pulse Ox 97.7 F 99 H 20 121/68 88 L 12/30/24 18:15 12/30/24 19:22 12/30/24 18:15 12/30/24 18:52 12/30/24 19:19 Laboratory Results WBC 13.73 10^3/uL (4.4-10.8) H 12/30/24 09:25 RBC 3.98 10^6/uL (3.93-5.22) 12/30/24 09:25 Hgb 11.2 g/dL (11.2-15.7) 12/30/24 09: Hct 33.8 % (36.0-46.0) L 12/30/24 09: MCV 85 fL (80-95) 12/30/24 09:25 MCH 28.1 pg (27.0-33.0) 12/30/24 09: MCHC 33.1 % (32.0-36.0) 12/30/24 09: RDW 13.4 % (11.7-14.6) 12/30/24 09: Plt Count 207 10^3/uL (130-400) 12/30/24 09: MPV 10.8 fL (8.0-11.0) 12/30/24 09:25 Immature Gran % 0.5 % 12/30/24 09:25 Neutrophils % 74.9 % 12/30/24 09:25 Lymphocytes % 15.3 % 12/30/24 09:25 Monocytes % 6.9 % 12/30/24 09:25 Eosinophils % 2.2 % 12/30/24 09:25 Basophils % 0.2 % 12/30/24 09:25 Nucleated RBC % 0.0 % (0.0-0.3) 12/30/24 09: Absolute Neutrophils 10.28 10^3/uL (1.2-6.7) H 12/30/24 09:25 Absolute Lymphocytes 2.10 10^3/uL (1.2-3.4) 12/30/24 09:25 Absolute Monocytes 0.95 10^3/uL (0.1-0.8) H 12/30/24 09:25 Absolute Eosinophils 0.30 10^3/uL (0.0-0.7) 12/30/24 09:25 Absolute Basophils 0.03 10^3/uL (0.0-0.2) 12/30/24 09:25 Sodium 136 mmol/L (136-145) 12/30/24 09:25 Potassium 3.5 mmol/L (3.5-5.1) 12/30/24 09:25 Chloride 103 mmol/L (98-107) 12/30/24 09:25 Carbon Dioxide 23.8 mmol/L (21.0-32.0) 12/30/24 09:25 Anion Gap 9.2 mmol/L (3-11) 12/30/24 09:25 BUN 5 mg/dL (7-18) L 12/30/24 09:25 Creatinine 0.5 mg/dL (0.55-1.02) L 12/30/24 09:25 Est GFR (CKD-EPI 2020) 135.07 (mL/min/1.73m2) 12/30/24 09:25 Glucose 84 mg/dL (74-106) 12/30/24 09:25 Uric Acid 3.3 mg/dL (2.6-6.0) 12/30/24 09:25 Calcium 8.6 mg/dL (8.5-10.1) 12/30/24 09:25 Magnesium 4.4 mg/dL (1.8-2.4) H* 12/30/24 17:25 Total Bilirubin 0.2 mg/dL (0.2-1.0) 12/30/24 09:25 AST 65 U/L (15-37) H 12/30/24 09:25 ALT 157 U/L (14-59) H 12/30/24 09:25 Alkaline Phosphatase 135 U/L (46-116) H 12/30/24 09:25 Total Protein 7.0 g/dL (6.4-8.2) 12/30/24 09:25 Albumin 2.4 g/dL (3.4-5.0) L 12/30/24 09:25 Ur Random Creatinine 40.19 mg/dL 12/30/24 11:40 U Random Total Protein 9.5 mg/dL 12/30/24 11:40 U [place] Prot/Creat Ratio 0.23 12/30/24 11:40 ABO/Rh A Positive 12/29/24 22:35 Antibody Screen NEGATIVE 12/29/24 22:35 Objective Narrative Objective Narrative: general: Well nourished female in no immediate distress pulm: No overt respiratory distress abd: gravid, non-tender ext: trace edema noted equally bilaterally (per community outreach manager): 6.5 / 80 / -1 with developing caput FHT: Cat 1 [place]: q2-5; Pitocin at 16 Subjective Interval history since last seen: Patient requesting section. Results Hemoglobin/Hematocrit: Hgb 11.2 g/dL (11.2-15.7) 12/30/24 09:25 Hct 33.8 % (36.0-46.0) L 12/30/24 09:25 Abnormal Lab Findings: Abnormal Labs 12/29/24 12/30/24 12/30/24 22:35 09:25 17:25 WBC 12.82 H 13.73 H RBC 3.87 L Hgb 11.0 L Hct 32.9 L 33.8 L Absolute Neutrophils 9.22 H 10.28 H Absolute Monocytes 0.99 H 0.95 H BUN 5 L Creatinine 0.5 L 0.5 L Magnesium 3.7 H 4.4 H* AST 71 H 65 H ALT 169 H 157 H Alkaline Phosphatase 132 H 135 H Albumin 2.3 L 2.4 L
[2024-12-30] MEDS: AZITHROMYCIN 500 MG in Normal Saline 250 ML 250 MG IVPB (19:45)
[2024-12-30] MEDS: ceFAZolin 2 GM/50 ML BAG IVPB (20:45)
[2024-12-30] MEDS: Bupivacaine LIPOSOME/PF 133 MG/10 ML VIAL IJ (21:54)
--- NOTE | 2024-12-30 22:06 | PDOC.OPNB_ITS ---
Date of service: 12/30/24 Time of Service: 22:07 Operative Note Operative Note Delivery Method: Unscheduled STAT: No DATE OF PROCEDURE: 12/30/24 PRE-OP DIAGNOSES: Arrest of labor POST-OP DIAGNOSES: same PROCEDURE: Primary Low Transverse Section SURGEON: Mary Grace Dillon Assisting Surgeon: Jocelyn Harris Anesthesia: epidural Estimated blood loss (mL): 800 Pathology: other (placenta) Complications: None Patient was transported to: floor Patient's condition: stable Procedure Description: Patient was taken to the OR with IV fluids running.? She received 2 grams of Ancef for prophylaxis prior to heading to the OR. Spinal anesthesia was established, and the patient was positioned into supine positioning with her arms abducted at her sides.? The vagina was prepped with Betadine.? A aldridge catheter was inserted using sterile technique. The abdomen was prepped with Chlorohexedine and allowed to dry for three minutes.? The patient was then draped in the usual, sterile fashion, and the bed was placed at a leftward tilt.? The abdomen was marked with the intended pfannestiel site. A timeout was performed; the patient and procedure were identified.? Testing of the levels of anesthesia was found to be adequate.?? A Pfannenstiel incision was created with scalpel and carried down to the level of the fascia with bovie cautery.? The fascia was incised, and the incision was carried laterally with curved reyna scissors. The anterior leaf of fascia was then tented up with kocker claps, and the underlying rectus muscle was dissected off with a combination of blunt and sharp dissection.? The same was done for the inferior leaf.? The midline of the rectus was identified and bluntly dissected revealing the underlying peritoneum. The peritoneum was bluntly entered.? Of note, as we dissected down towards and through the peritoneum, the patient complained of changing sensation and some pain; therefore, several pauses were observed as anesthesia titrated the patient's medications. Once anesthesia was adequate, a large Covidein surgisleeve retractor was placed.? A bladder flap was created using metzenbaum scissors and deflected off of the lower uterine segment.? A low transverse incision was made using a fresh #10 blade, and the incision was extended using blunt traction.? The fluid sac was ruptured and clear fluid was noted. The fetus was presenting as a vertex. The head was brought to the level of the hysterotomy with careful attention to avoid using the incision as a fulcrum.? The rest of the body followed easily with gentle fundal pressure from the educational program assistant. After one minute of delayed cord clamping, the cord was clamped twice and cut and the baby transferred to the warmer, awaiting the pediatric staff.? Pitocin and Azithromycin were initiated.? Cord blood was obtained. The placenta was then delivered with assistance and fundal massage. The uterus was explored to ensure all tissue was cleared. The uterus was then exteriorized for better visualization and wrapped in a moistened lap.? Ring forceps were used to grasp the lower uterine segment, and the uterine incision was closed with a running locked layer of 0 Vicryl. As I began the initial inclosure, the anatomy appeared odd and further inspection appreciated that the lower ring was actually holding a portion of the myometrium rather than the entirety of the lower uterine segment. The suture was removed and the stitch was replaced to encompass the entirety of the lower uterine segment.? A second layer of 0 Vicryl imbricating stitch was used to secure the hysterotomy.? An initial assessment found in the hysterotomy hemostatic.??? Stats were used to grasp the peritoneum, and the layer was closed using a run willam 2-0 vicryl with careful attention to guard any underlying bowel with retraction.? Careful inspection of the rectus muscle appreciated good hemostasis.? The right apex of the fascia was secured with a kocker clamp, and the fascia was then closed with a running 0-vicryl.? Careful inspection of the subcuticular tissues appreciated good hemostasis, and this layer was closed with a running 3-0 vicryl.? 20 cc's of Exparel was injected into the subcuticular tissues, and hemostasis was again confirmed.? The skin was reapproximated with a 4-0 vicryl subcuticular stitch.? The patient tolerated the procedure well.? The incision was cleaned and covered with a telfa sheet, ABD pad, and medipore tape.? She was then taken to the PACU in good condition.
[2024-12-30] MEDS: Ketorolac 30 MG/ML VIAL IVP (22:32)
[2024-12-30] MEDS: oxyCODONE 5 MG TAB PO (22:32)
[2024-12-30 23:40] LABS: HCT 34.3 % (36.0-46.0); HGB 11.4 g/dL (11.2-15.7); MCH 28.1 pg (27.0-33.0); MCHC 33.2 % (32.0-36.0); MCV 85 fL (80-95); MPV 11.0 fL (8.0-11.0); Platelet Count 219 10^3/uL (130-400); RBC 4.05 10^6/uL (3.93-5.22); RDW 13.6 % (11.7-14.6); RDW-SD 42.3 fL; WBC 20.36 10^3/uL (4.4-10.8)
[2024-12-30 23:56] LABS: ALT 217 U/L (14-59); AST 151 U/L (15-37); Albumin 2.2 g/dL (3.4-5.0); Alkaline Phosphatase 140 U/L (46-116); Anion Gap 10.4 mmol/L (3-11); BUN 3 mg/dL (7-18); Bilirubin, Total 0.3 mg/dL (0.2-1.0); CO2 21.6 mmol/L (21.0-32.0); Calcium 7.4 mg/dL (8.5-10.1); Chloride 102 mmol/L (98-107); Estimated GFR 106.11 (mL/min/1.73m2); Glucose 156 mg/dL (74-106); Potassium 3.9 mmol/L (3.5-5.1); Sodium 134 mmol/L (136-145); Total Protein 6.9 g/dL (6.4-8.2)
[2024-12-30 23:57] LABS: Magnesium 4.6 mg/dL (1.8-2.4)
[2024-12-31] VITALS (145 sets, daily range): BP systolic 109–136; BP diastolic 59–86; PULSE 69–105; RESP 16–18; TEMP 36.4–36.9; O2SAT 92–100
[2024-12-31] MEDS: Lactated Ringers 1,000 ML 50 ML IV (03:07)
[2024-12-31] MEDS: MAGNESIUM SULFATE 20 GM/500 ML BAG IV_INF ×2 (03:08→12:33)
[2024-12-31] MEDS: Acetaminophen 325 MG TAB 650 MG PO ×3 (05:18→23:57)
[2024-12-31] MEDS: Ketorolac 30 MG/ML VIAL IVP ×4 (05:19→23:58)
[2024-12-31] MEDS: oxyCODONE 5 MG TAB PO ×2 (07:01→23:57)
[2024-12-31 10:04] LABS: Hepatitis A Antibody IgM Negative (Negative); Hepatitis C Ab w Rflx HCV PCR Negative (Negative)
--- NOTE | 2024-12-31 11:14 | W.PM.OBPNV1 ---
Date of service: 12/31/24 Time of Service: 11:14 Assessment and Plan Assessment and plan (1) S/P section: Status: Acute Assessment and plan: 24 yo G1 now P1001 s/p 38 wk PLTCS performed 12/30/2024 PM - Rh+ / Rub I / VZV I / GBS neg - Presented to L&D PROM as of 1999 on 12/30 - complicated by obesity, cHTN, PROM - Intrapartum course complicated by arrest of labor (at 6-7 cm) and superimposed pre-E w/SF (based on BP's and liver enzymes); currently on Procardia 30 mg PO XR - without issue - Meeting appropriate milestones (though aldridge still in place for accurate I's / O's while on mag) - Last pap smear 07/02/2024 Neg cytology - Contraceptive plans: pending - Narcotic-use counseling pending - depression counseling pending - Discharge planning pending - - - - - - - - - - - - - - - 12/31/2024 at 0900 ([place]): Patient found resting comfortably in bed. She reports feeling overall well and is in good spirits. She is enjoying her baby. She denies s/sx of preE, SOB, or CP. Her CBC is reassuring this AM; her AST/ALT did trend upward. BP's are well controlled on current medication. We discussed planned progression as well as continued magnesium therapy for a full 24 hours post-. - - - - - - - - - - - - - - - (2) Preeclampsia complicating hypertension: Status: Acute (3) Stage 1 hypertension: Status: Acute (4) Body mass index (BMI) of 40.1 to 44.9 in adult: Status: Acute Subjective Subjective Narrative: 24 yo G1 now P1001 s/p 38 week PLTCS performed 12/30/2024 PM; continues on magnesium therapy for pre-eclampsia with severe features based on elevated blood pressures in the setting of notable transaminitis. She reports feeling well. Denies s/sx of preE. Pain is well controlled. Lochia is appropriate. She has tolerated solid foods. Aldridge still in place. Not yet ambulating. ; baby is tongue-tied but reportedly still nurses well. Exam Physical Exam Vital signs: Temp Pulse Resp BP Pulse Ox 97.5 F L 98 H 16 118/74 99 12/31/24 08:00 12/31/24 11:10 12/31/24 10:00 12/31/24 11:04 12/31/24 11:10 Narrative: general: Well nourished female in no immediate distress pulm: no overt respiratory distress abd: Non distended, incision is dressed with bandages and appears clean ext: trace edema noted equally bilaterally psych: Cooperative, pleasant, appropriate Results Hemoglobin/Hematocrit: Hgb 11.4 g/dL (11.2-15.7) 12/30/24 23:37 Hct 34.3 % (36.0-46.0) L 12/30/24 23:37 Abnormal Lab Findings: Abnormal Labs 12/29/24 12/30/24 12/30/24 22:35 09:25 17:25 WBC 12.82 H 13.73 H RBC 3.87 L Hgb 11.0 L Hct 32.9 L 33.8 L Absolute Neutrophils 9.22 H 10.28 H Absolute Monocytes 0.99 H 0.95 H Sodium BUN 5 L Creatinine 0.5 L 0.5 L Glucose Calcium Magnesium 3.7 H 4.4 H* AST 71 H 65 H ALT 169 H 157 H Alkaline Phosphatase 132 H 135 H Albumin 2.3 L 2.4 L 12/30/24 23:37 WBC 20.36 H RBC Hgb Hct 34.3 L Absolute Neutrophils Absolute Monocytes Sodium 134 L BUN 3 L Creatinine Glucose 156 H Calcium 7.4 L Magnesium 4.6 H* AST 151 H ALT 217 H Alkaline Phosphatase 140 H Albumin 2.2 L
--- NOTE | 2024-12-31 12:49 | W.ANESPOSTOP ---
Postoperative Evaluation Date, Time and Location Date Performed: 12/31/24 Time Performed: 12:10 Patient Location: Obstetrics Vital Signs Most Recent Imported Vital Signs: Most Recent Vital Signs Temp Pulse Resp BP Pulse Ox 36.7 C 90 18 123/65 96 12/31/24 12:00 12/31/24 12:01 12/31/24 12:00 12/31/24 12:01 12/31/24 12:00 Pain Score Most Recent Pain Score: Most Recent Pain Score Pain Level [Abdomen] 0 12/31/24 00:02 Pain Level [Back] 0 12/31/24 00:02 Pain Level 4 12/31/24 11:54 Assessment Mental Status: Awake (Alert & Oriented to Patient Baseline) Airway and Respiratory Function: Patent airway with normal (patient baseline) respiratory exam Cardiovascular Function: Hemodynamically Stable Hydration Status: Adequately Hydrated Nausea & Vomiting: No Nausea or Vomiting Pain: Pain is tolerable per patient Peripheral Nerve Block: Patient did not receive a nerve block
[2024-12-31] MEDS: NIFEdipine-CR 30 MG TABCR PO (18:05)
[2025-01-01] VITALS (7 sets, daily range): BP systolic 111–127; BP diastolic 64–86; PULSE 77–86; RESP 16–18; TEMP 36.4–36.9; O2SAT 96–97
[2025-01-01] MEDS: oxyCODONE 5 MG TAB PO (07:46)
[2025-01-01] MEDS: Acetaminophen 325 MG TAB 650 MG PO ×4 (07:46→21:26)
[2025-01-01] MEDS: Ibuprofen 600 MG TAB PO ×3 (07:46→21:27)
[2025-01-01] MEDS: Docusate Sodium 100 MG CAP PO ×2 (07:46→21:26)
--- NOTE | 2025-01-01 16:53 | W.PM.OBPNV1 ---
Date of service: 01/01/25 Time of Service: 16:53 Assessment and Plan Assessment and plan (1) S/P section: Status: Acute Assessment and plan: 24 yo G1 now P1001 s/p 38 wk PLTCS performed 12/30/2024 PM - Rh+ / Rub I / VZV I / GBS neg - Presented to L&D PROM as of 1999 on 12/30 - complicated by obesity, cHTN, PROM - Intrapartum course complicated by arrest of labor (at 6-7 cm) and superimposed pre-E w/SF (based on BP's and liver enzymes); currently on Procardia 30 mg PO XR - Formula feeding - Meeting appropriate milestones - Last pap smear 07/02/2024 Neg cytology - Contraceptive plans: pending - Narcotic-use counseling pending - depression counseling pending - Discharge planning Anticipate tomorrow AM - - - - - - - - - - - - - - - 12/31/2024 at 0900 ([facility]): Patient found resting comfortably in bed. She reports feeling overall well and is in good spirits. She is enjoying her baby. She denies s/sx of preE, SOB, or CP. Her CBC is reassuring this AM; her AST/ALT did trend upward. BP's are well controlled on current medication. We discussed planned progression as well as continued magnesium therapy for a full 24 hours post-. [facility] Patient was assessed twice today and found to be in pleasant spirits. She was emotionally struggling with breast-feeding earlier in the day, but has since made the decision to proceed with formula feeding. She is happy and content with her decision. Lochia has been appropriate. Dressing on her incision was removed last night; incision is found clean and dry without evidence of tenderness, induration, or fluctuance around the incision. Her appetite is well intact and her blood pressures have been well-controlled on Procardia 30. She denies any signs or symptoms preeclampsia. She is urinating without issue and passing flatus; patient states that she had a bowel movement this evening as well. She would like to stay overnight as her baby is under continued surveillance for feeding issues. We will monitor her through the night; I anticipate discharge in the a.m. if all remains stable. - - - - - - - - - - - - - - - Subjective Subjective Narrative: Patient is found resting comfortably in her bed; she is in very pleasant spirits. She is surrounded by friends and family. She expresses excitement of her having had a bowel movement just recently. She is eating and drinking without issue. Lochia has been appropriate. She is formula feeding her baby, now. Pain is appropriately controlled. She denies signs or symptoms of preeclampsia, and she is noted to have come off her magnesium last night. Exam Physical Exam Vital signs: Temp Pulse Resp BP Pulse Ox 98.4 F 85 18 127/86 97 01/01/25 15:20 01/01/25 15:20 01/01/25 15:20 01/01/25 15:20 01/01/25 15:20 Narrative: Well-nourished female in no immediate distress. She is in pleasant, and cooperative spirits. She exhibits no respiratory distress. Trace edema noted equally bilateral lower extremities. Abdomen is soft, nondistended; incision is clean, dry, and intact. Results Hemoglobin/Hematocrit: Hgb 11.4 g/dL (11.2-15.7) 12/30/24 23:37 Hct 34.3 % (36.0-46.0) L 12/30/24 23:37 Abnormal Lab Findings: Abnormal Labs 12/29/24 12/30/24 12/30/24 22:35 09:25 17:25 WBC 12.82 H 13.73 H RBC 3.87 L Hgb 11.0 L Hct 32.9 L 33.8 L Absolute Neutrophils 9.22 H 10.28 H Absolute Monocytes 0.99 H 0.95 H Sodium BUN 5 L Creatinine 0.5 L 0.5 L Glucose Calcium Magnesium 3.7 H 4.4 H* AST 71 H 65 H ALT 169 H 157 H Alkaline Phosphatase 132 H 135 H Albumin 2.3 L 2.4 L 12/30/24 23:37 WBC 20.36 H RBC Hgb Hct 34.3 L Absolute Neutrophils Absolute Monocytes Sodium 134 L BUN 3 L Creatinine Glucose 156 H Calcium 7.4 L Magnesium 4.6 H* AST 151 H ALT 217 H Alkaline Phosphatase 140 H Albumin 2.2 L
[2025-01-01] MEDS: NIFEdipine-CR 30 MG TABCR PO (18:08)
[2025-01-02 08:15] VITALS: BP 121/81; PULSE 82; RESP 16; TEMP 36.7
[2025-01-02 09:00] VITALS: BP 143/87; PULSE 103; RESP 16; TEMP 36.7
[2025-01-02 09:31] VITALS: TEMP 36.7
[2025-01-02] MEDS: Ibuprofen 600 MG TAB PO (09:31)
[2025-01-02] MEDS: Acetaminophen 325 MG TAB 650 MG PO (09:31)
--- NOTE | 2025-01-02 11:04 | DSE_ITS ---
Date of service: 01/02/25 Time of Service: 11:04 DS: Diagnosis Discharge Diagnosis (1) S/P section: Status: Acute Discharge Plan Disposition Patient Disposition: Home Condition: Good Discharge Details Reason For Visit: PROM, 38 Weeks Admit Date/Time: 12/29/24 22:00 Admit Provider: Mary Grace Dillon Attending Provider: Dodie Ferris [facility] Course: 24 yo G1 now P1001 s/p 38 wk PLTCS performed 12/30/2024 PM - Rh+ / Rub I / VZV I / GBS neg - Presented to L&D PROM as of 1999 on 12/30 - complicated by obesity, cHTN, PROM - Intrapartum course complicated by arrest of labor (at 6-7 cm) and superimposed pre-E w/SF (based on BP's and liver enzymes); currently on Procardia 30 mg PO XR - Formula feeding - Meeting appropriate milestones - Last pap smear 07/02/2024 Neg cytology - Contraceptive plans: still deciding (provided with prescription for Evelyn) - Narcotic-use counseling completed - depression counseling completed - Discharged 01/02/2025 AM - - - - - - - - - - - - - - - 01/02/2025 ([place]): Patient was admitted on the evening of 12/29/2024 for rupture of membranes. She was induced with 2 doses of Cytotec and was ultimately appreciated to have elevated ALT and AST doubled from baseline. Her blood pressures began to rise and she was diagnosed with preeclampsia with severe features. Magnesium therapy was initiated. She was augmented with Pitocin and AROM; however, despite consistent efforts, she ultimately arrested in labor at 6-1/2 cm. She was taken for primarily transverse section which was performed without issue on the evening of 12/30/2024. She remained on magnesium for 24 hours and blood pressures remained well-controlled on Procardia 30 XL. Today, she is found doing well. She is in pleasant spirits. She is formula feeding her baby. She is ambulating, urinating, eating, and passing flatus all without issue. Her lochia is appropriate. Her pain is well-controlled. We had an extensive discussion regarding contraceptive options; she is still considering her options, but is open to the prescription of Evelyn for now. We had an extensive discussion regarding narcotic use for pain control and she was strongly advised on its addictive potential as well as the importance of discarding any unused leftovers. We also discussed depression and she was encouraged to have a low threshold for seeking immediate medical e valuation if she has any concerns that arise. We discussed signs and symptoms of preeclampsia. She will follow-up in the office within 48 hours of discharge for blood pressure check. Patient was discharged with instructions for close evaluation - - - - - - - - - - - - - - - Home Meds and New Rx's Prescriptions: New oxycodone 5 mg capsule 5 mg PO Q8H 5 Days Qty: 15 0RF ibuprofen 600 mg tablet 600 mg PO Q6H 10 Days Qty: 40 0RF norethindrone (contraceptive) [Evelyn] 0.35 mg tablet 0.35 mg PO DAILY 90 Days Qty: 90 4RF sertraline 25 mg tablet 25 mg PO DAILY 90 Days Qty: 90 3RF nifedipine [Procardia XL] 30 mg tablet extended release 24hr 30 mg PO DAILY 90 Days Qty: 90 1RF Continued PNV [id number] 30 mg iron-10 mg iron-1 mg capsule 1 cap PO DAILY pantoprazole [Protonix] 20 mg tablet,delayed release (DR/EC) 40 mg PO DAILY Qty: 60 6RF epinephrine [EpiPen 2-Candido] 0.3 mg/0.3 mL auto-injector 0.3 mg IM ONCE PRN Rx Instructions: as a single dose; may repeat once Discontinued aspirin 81 mg tablet,delayed release (DR/EC) 162 mg PO DAILY Qty: 90 3RF No Action acetaminophen 500 mg tablet 500 mg PO Q6H PRN Discharge Instructions Instructions: Control After Having a Baby, What to Watch for After You Have a Baby, Normal Bleeding After Having a Baby, Exercises Additional Instructions: ? Eat a well-rounded diet ? Ambulate regularly and engage in light activity while avoiding repeated heavy lifting (over 10 pounds) ? Take your medications as prescribed ? Please be sure to attend your follow-up visits ? If you have an incision, be sure to keep it clean and dry using simple soap and water; avoid scrubbing to avoid damage to suture ? If you have been prescribed narcotics such as tramadol or oxycodone or [place], please note these medications have an addictive potential and should be used sparingly.? Please discard of any leftover medication either with your local pharmacy or by flushing the medication.? Do not share these medications with other individuals, and have a low threshold for seeking immediate medical evaluation if you experience any sleepiness, headaches, or any other concerns while using these medications. ? Please do not insert anything vaginally, including but not limited to, tampons, douching, or sexual intercourse, for a full 8 weeks and/or until you are medically cleared. ? If you have any concerns including fevers/chills, lightheadedness, visual changes, persistent headaches unresponsive to Tylenol, persistent nausea/vomiting, persistent abdominal pain, bruising and or leakage from your incision sites, excessive vaginal bleeding, or any other concerns, please have a low threshold for seeking immediate medical evaluation and/or reaching out to our clinic at [phone]. ? If you find yourself having crying spells you cannot explain, loss of appetite, persistent inability to sleep, lack of bonding with your baby, and/or general and persistent sadness, please feel free to reach out to our clinic immediately at [phone]. Activity:: pelvic rest x6 weeks Equipment/Supplies:: No Equipment Needed Diet:: Normal Diet Discharge Orders Discharge Orders: Discharge Order (Routine); Ordered 01/02/25 Ordered By: Mary Grace Dillon OB:DS Summary Contraception Discussed Contraception Discussed: Yes (Evelyn) Contraceptive Plan: Undecided, [place] Gender-Baby A: Male weight: 6 lb 6.118 oz Status at Discharge Functional status at discharge: independent ambulation Overall status at discharge: patient is progressing back to baseline Mental Status: mental status grossly normal Speech and Movement: speech and movement normal Mood: congruent mood Affect: normal affect Exam Physical Exam Vital signs: Temp Pulse Resp BP Pulse Ox 98.1 F 85 18 127/86 97 01/02/25 09:31 01/01/25 15:20 01/01/25 15:20 01/01/25 15:20 01/01/25 15:20 PFSH All Active Problems (Updated 12/30/24 @ 22:49 by Mary Grace Dillon, DO) S/P section (Acute) Arrested labor (Acute) Preeclampsia complicating hypertension (Acute) Elevated transaminase level (Acute) 38 weeks gestation of (Acute) Premature rupture of membranes (Acute) Marijuana use (Acute) Costochondritis (Acute) Family history of cardiac arrhythmia (Acute) pt's mother had an [place], implanted defibrillator in her 40's Family history of aortic valve disorder (Acute) pt's mother had valve replacement in her 40's Chronic eczema (Acute) Family history of Hayk-Wnfpx-Qxfjkau disease (Acute) Baby's father (pt's fiance) Body mass index (BMI) of 40.1 to 44.9 in adult (Acute) Chronic constipation (Acute) (Acute) Stage 1 hypertension (Acute) Medical History Eczema Arthritis Rib injury Dragged by a cow. Pain x 1 year. Family history of diabetes mellitus in grandmother Family history of diabetes mellitus in grandfather Foreign body in right ear Removed ENT, 08/30/23 Tobacco user Obesity Menorrhagia Generalized anxiety disorder Disorder of speech or language development Allergic rhinitis due to tree pollen Ganglion, unspecified site right wrist surgery 2023 Decreased hearing Surgical History History of hand surgery Family History Mother Heart disease [place]. Chronic cardiac arrhythmia Depression Anxiety Asthma Maternal Grandfather Heart disease [place] age 47 Chronic cardiac arrhythmia Cancer lung cancer Arthritis Father Depression Anxiety Maternal Grandmother Diabetes Arthritis Paternal Grandfather Arthritis Diabetes Brother Asthma Hypertension Social History Smoking/Tobacco Use Status: Former Tobacco Use tobacco type: e-cigarettes Smoking risk assessment performed?: Yes Alcohol Intake: never Substance use type: does not use Housing: apartment Do you feel safe at home: Yes Do you feel safe in your relationship?: Yes History History 1 Para 0 Hx # Term Pregnancies 0 Multiple births 0 Hx # Pregnancies 0 Ectopic pregnancies 0 AB induced 0 Hx Number of Living Children 0 AB spontaneous 0 DS: Data Vitals/I&O Vitals and I&O: Vital Signs Temperature 98.1 F 01/02/25 09:31 Temperature Source Oral 01/01/25 15:20 Pulse 85 01/01/25 15:20 Pulse Rhythm Regular 01/01/25 20:05 Respiratory Rate 18 01/01/25 15:20 Blood Pressure 127/86 01/01/25 15:20 Blood Pressure Mean 99 01/01/25 15:20 Pulse Oximetry 97 01/01/25 15:20 Oxygen Delivery Method Room Air 12/29/24 22:24 Oxygen Flow Rate 0 12/29/24 22:24 Pain Level 4 01/02/25 09:31 Intake & Output 01/01/25 01/01/25 01/02/25 11:59 23:59 11:59 Output Total 350 / 350 Balance -350 / -350 Output: Urine 350 / 350 Other: Urine Color Pale
== END 2025-01-02 12:20 | disposition home or self-care (01) | DRG 788 ==
PROVIDERS: Admitting Provider Obstetrics & Gynecology; PCP Family Medicine; Visit Provider Advanced Practice Midwife
PROC: 10D00Z1 Extraction of Products of Conception, Low, Open Approach (ICD-10-PCS; CPT 59514; principal; 2024-12-30 20:05)
DX: O42.92 Full-term premature rupture of membranes, unspecified as to length of time between rupture and onset of labor (principal); Z3A.38 38 weeks gestation of pregnancy; Z37.0 Single live birth; O99.214 Obesity complicating childbirth; O11.4 Pre-existing hypertension with pre-eclampsia, complicating childbirth; O62.1 Secondary uterine inertia; E66.9 Obesity, unspecified; O99.344 Other mental disorders complicating childbirth; F41.8 Other specified anxiety disorders; O99.62 Diseases of the digestive system complicating childbirth; R19.7 Diarrhea, unspecified; K59.00 Constipation, unspecified; M94.0 Chondrocostal junction syndrome [Tietze]
CPT/HCPCS: 59514; 36415; 80053; 85027; 86704; 86709; 86803; 86850; 86900; 86901; 87340; 82565; 83735; 84156; 84550; 85025; 88307; J0456; J0595; J0665; J0666; J0690; J1100; J1885; J2003; J2274; J2371; J2405; J2795; J3010; J3410; J3475; J3490

== ENCOUNTER 2025-01-17 14:37 | Outpatient (CLI) | payer OTHER, MEDICAID, SELFPAY ==
[2025-01-17 14:39] LABS: Abs Immature Grans 0.02 10^3/uL (0.0-0.06); HCT 39.3 % (36.0-46.0); HGB 12.8 g/dL (11.2-15.7); Immature Grans % 0.2 %; MCH 27.8 pg (27.0-33.0); MCHC 32.6 % (32.0-36.0); MCV 85 fL (80-95); MPV 9.7 fL (8.0-11.0); Platelet Count 329 10^3/uL (130-400); RBC 4.60 10^6/uL (3.93-5.22); RDW 12.9 % (11.7-14.6); RDW-SD 39.9 fL; WBC 8.01 10^3/uL (4.4-10.8)
[2025-01-17 16:36] LABS: Iron 68 ug/dL (50-170); Total Iron Binding Capacity 423 ug/dL (250-450); Transferrin Sat 16 % (15-50)
[2025-01-17 16:50] LABS: Ferritin 31 ng/mL (8-252)
== END 2025-01-17 14:38 | disposition home or self-care (01) ==
LOC: LBO 14:38
PROVIDERS: PCP Family Medicine; Visit Provider Obstetrics & Gynecology
DX: O72.1 Other immediate postpartum hemorrhage (principal); N93.9 Abnormal uterine and vaginal bleeding, unspecified
CPT/HCPCS: 36415; 82728; 83540; 83550; 85025